=== PATIENT | female | born 1935 | race Caucasian/White ===

== ENCOUNTER 2017-11-29 11:00 | Inpatient (IN) ==
--- NOTE | 2017-11-29 11:39 | Emergency Department Note ---
Disposition Clinical Impression: New onset a-fib Fall Qualifiers: Encounter type: initial encounter Qualified Code(s): W19.XXXA - Unspecified fall, initial encounter Subcapital fracture of left femur Qualifiers: Encounter type: initial encounter Fracture type: closed Qualified Code(s): S72.012A - Unspecified intracapsular fracture of left femur, initial encounter for closed fracture Disposition: Transfer Short-Term Hosp Condition: Fair Referrals: Hanna Shipman FURNACE CHECKER [Primary Care Provider] - Forms: ED Satisfaction Letter Time of Disposition: 14:33 Lower Extremity Injury HPI - General Chief Complaint: ED Extremity Injury, Lower Stated Complaint: fall , L hip pain Time Seen by Provider: 11/29/17 11:06 Source: patient, family, EMS Mode of arrival: EMS Limitations: physical limitation Nursing Notes Reviewed: Yes Vital Signs Reviewed: Yes - History of Present Illness HPI Narrative: Ms. 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 She states she had just eaten breakfast and was walking from the kitchen to the living room. She states she remembers falling but is not sure why, denies tripping or losing footing. Denies dizziness. She states she believes she fell on her left knee and that her left knee and L hip pain were 10+/10 initially ( now 6/10 after morphine during transport). She does not believe she hit her head , but can not recall all details of the fall. EMS called after Jenny activated her lifealert. No history of hypotension, though is treated for HTN with medications. Notes history of one past fall approx 1-2 years ago when she lost her balance and fell into her bathtub. Currently she denies numbness, tingling, confusion, dizziness, headaches. Notes admits a sore area of chest to palpation, stating she may have hit the coffee table. Pt Subjective Complaint: hip injury, knee injury - Related Data Home Medications Medication Instructions Recorded Confirmed Albuterol Sulfate [Albuterol 2 puff IH Q4-6H PRN 07/06/15 07/30/17 Inhaler] Amlodipine Besylate 10 mg PO DAILY 07/06/15 07/30/17 Calcium Carbonate/Vitamin D3 1 each PO DAILY 07/06/15 07/30/17 [Calcium 600 + Vit D3 800 Tab] Cholecalciferol (Vitamin D3) 1,000 unit PO DAILY 07/06/15 07/30/17 [Vitamin D] Fluticasone/Salmeterol [Advair 1 each IH BID 07/06/15 07/30/17 500-50 Diskus] Methotrexate/PF [Otrexup 10 mg/0.4 10 mg SQ QWEEK 07/06/15 07/30/17 ml Auto-Inj] Mirabegron [Myrbetriq] 50 mg PO DAILY 07/06/15 07/30/17 Montelukast [Singulair] 10 mg PO DAILY 07/06/15 07/30/17 Omeprazole [PriLOSEC] 20 mg PO DAILY 07/06/15 07/30/17 Vitamin B Complex 1 each PO DAILY 07/06/15 07/30/17 Allergies Allergy/AdvReac Type Severity Reaction Status Date / Time levofloxacin [From Levaquin] Allergy Hives Verified 07/30/17 11:33 prednisone Allergy Dizziness Verified 07/30/17 11:33 Sulfa (Sulfonamide Allergy Rash Verified 07/30/17 11:33 Antibiotics) All systems ED: reviewed and negative except as stated. Review of Systems: As Per HPI Constitutional: Denies: chills, weakness Cardiovascular: Denies: chest pain, palpitations, orthopnea, edema, syncope Respiratory: Denies: dyspnea Gastrointestinal: Denies: abdominal pain, nausea, vomiting Musculoskeletal: Denies: back pain, neck pain Integumentary: Denies: rash Neurological: Reports: vertigo (notes intermittent dizziness). Denies: headache , weakness, numbness, paresthesias, confusion Endocrine: Denies: fatigue Hematological/Lymphatic: Denies: easy bleeding, easy bruising Past Medical History - Past Medical History Attestation: Yes The following information was validated with the patient. Source: patient, obtained from family Medical history: Reports: cancer, hypertension Psychiatric history: Reports: no psych history - Social History Smoking Status: Never smoker Smokeless Tobacco Status: No Alcohol use: Reports: none Drug use: Reports: none Physical Exam - General Limitations: physical limitation General appearance: alert, in no apparent distress - Head Head exam: atraumatic, normocephalic, normal inspection - Eye Eye exam: Present: normal appearance, EOMI. Absent: conjunctival injection - ENT ENT exam: normal exam, mucous membranes moist - Neck Neck exam: Present: normal inspection, full ROM, trachea midline. Absent: tenderness - Chest Chest inspection: Present: normal inspection, symmetric chest wall rise, tenderness (bruise/ecchymosis to L upper chest, "sore" to touch) - Respiratory Respiratory exam: Present: normal lung sounds bilaterally. Absent: respiratory distress, wheezes, accessory muscle use - Cardiovascular Cardiovascular exam: Present: irregular rhythm - Abdominal Exam Abdominal exam: Present: soft, Non-Tender. Absent: distention, guarding, rebound, rigidity - Expanded Lower Extremity Exam Hip/Pelvis exam: Present: tenderness (pain with movement of hip). Absent: swelling, abrasion, ecchymosis Upper leg exam: Absent: tenderness, swelling, abrasion, laceration, ecchymosis, erythema Knee exam: Present: tenderness, swelling (mild), ecchymosis (inferior aspect). Absent: laceration Lower leg exam: Present: normal inspection. Absent: tenderness, swelling Ankle exam: Present: normal inspection. Absent: tenderness, swelling, abrasion , ecchymosis, erythema Foot/toe exam: Present: normal inspection, full ROM. Absent: tenderness, swelling, abrasion, ecchymosis, erythema Neurovascular/Tendon exam: Present: normal capillary refill. Absent: extremity cold to touch, pallor Gait: unable to bear weight - Neurological Exam Neurological exam: Present: alert, oriented X3 - Psychiatric Psychiatric exam: Present: normal affect, normal mood - Skin Skin exam: Present: warm, dry, intact, normal color (other than noted ). Absent : cyanosis, erythema, pallor, mottled Course - Consultations Consultation #1: Dr. Hunter spoke to Ortho cement mason apprentice physician, Dr. Dobbins. Time: 14:27 Consultation #2: Accepted by Dr. Martinez. Time: 14:34 Vital Signs Temperature 98.6 F 11/29/17 11:02 Pulse Rate 100 11/29/17 11:02 Respiratory Rate 20 11/29/17 11:02 Blood Pressure 148/94 11/29/17 11:02 O2 Sat by Pulse Oximetry 100 11/29/17 11:02 Temperature 98.6 F 11/29/17 11:02 Pulse Rate 113 11/29/17 13:23 Respiratory Rate 18 11/29/17 13:23 Blood Pressure 118/65 11/29/17 13:23 O2 Sat by Pulse Oximetry 100 11/29/17 13:23 Oxygen Delivery Oxygen Delivery Room Air Extremity Injury, Lower - MDM Narrative Medical decision making narrative: Patient found to have new onset Afib, no palpitations or chest pain. CT head pending. Will start patient on heparin if no evidence of a bleed. Left knee XR with osteopenia but no acute injury. Irregularity of L hip XR may represent fracture, will get CT of hip. Patient will likely be admitted for new onset Afib and further workup. 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 No active bleeding. CT hip showing subcapitis fracture of femoral neck. On reassessment patient have significant L leg/hip pain, adjusted pain medication. Patient aware of pending admission. Spoke to both ortho and hospitalist. Will start patient on Heparin for new onset Afib. HR low 100s, BP improved, not started on rate control currently. - Differential Diagnosis Likely: sprain/strain, acute internal derangement of knee, fracture, dislocation - Medical Records Medical records reviewed: Yes I reviewed the patient's medical records. - Lab Data Lab results reviewed: Yes I reviewed the patient's lab results. Result diagrams: 11/29/17 13:24 11/29/17 13:24 Lab Results 11/29/17 11/29/17 11/29/17 Range/Units 13:24 13:24 13:24 WBC 11.4 H (4.3-11.1) K/mcL RBC 4.24 (3.82-4.97) M/mcL Hgb 13.6 (11.5-15.4) g/dL Hct 39.9 (35.3-44.9) % MCV 94.1 (83.0-100.0) fL MCH 32.1 (28.0-33.3) pg MCHC 34.1 (31.6-35.5) g/dL RDW 14.1 (11.5-14.5) % Plt Count 151 (140-400) K/mcL MPV 9.7 (9.4-12.4) fL Immature Gran % 1.1 (0-4) % Seg Neutrophils % 84.5 % Lymphocytes % 7.8 % Monocytes % 5.4 % Eosinophils % 0.9 % Basophils % 0.3 % Neutrophils # 9.6 H (1.6-8.9) K/mcL Lymphocytes # 0.9 (0.6-4.6) K/mcL Monocytes # 0.6 (0.0-1.3) K/mcL Eosinophils # 0.1 (0.0-0.6) K/mcL Basophils # 0.0 (0.0-0.2) K/mcL Sodium 138 (136-145) mEq/L Potassium 3.7 (3.5-5.1) mEq/L Chloride 106 (98-107) mEq/L Carbon Dioxide 23 (23-29) mEq/L BUN 11 (8-23) mg/dL Creatinine 0.56 L (0.60-1.20) mg/dL Est GFR ( Amer) > 60 (> 60) Est GFR (Non-Af Amer) > 60 (> 60) BUN/Creatinine Ratio 20 (6-26) Glucose 127 H (70-105) mg/dL Calculated Osmolality 287 (280-300) Calcium 9.0 (8.6-10.3) mg/dL Troponin I < 0.03 (< 0.04) ng/mL Specimen Rejected Blood Type Antibody Screen 11/29/17 11/29/17 Range/Units 13:24 14:09 WBC (4.3-11.1) K/mcL RBC (3.82-4.97) M/mcL Hgb (11.5-15.4) g/dL Hct (35.3-44.9) % MCV (83.0-100.0) fL MCH (28.0-33.3) pg MCHC (31.6-35.5) g/dL RDW (11.5-14.5) % Plt Count (140-400) K/mcL MPV (9.4-12.4) fL Immature Gran % (0-4) % Seg Neutrophils % % Lymphocytes % % Monocytes % % Eosinophils % % Basophils % % Neutrophils # (1.6-8.9) K/mcL Lymphocytes # (0.6-4.6) K/mcL Monocytes # (0.0-1.3) K/mcL Eosinophils # (0.0-0.6) K/mcL Basophils # (0.0-0.2) K/mcL Sodium (136-145) mEq/L Potassium (3.5-5.1) mEq/L Chloride (98-107) mEq/L Carbon Dioxide (23-29) mEq/L BUN (8-23) mg/dL Creatinine (0.60-1.20) mg/dL Est GFR ( Amer) (> 60) Est GFR (Non-Af Amer) (> 60) BUN/Creatinine Ratio (6-26) Glucose (70-105) mg/dL Calculated Osmolality (280-300) Calcium (8.6-10.3) mg/dL Troponin I (< 0.04) ng/mL Specimen Rejected Volume Blood Type O NEGATIVE Antibody Screen NEGATIVE - Radiology Data Radiology results reviewed: Yes I reviewed the patient's radiology results. - EKG Data EKG attestation: Yes I reviewed and interpreted this EKG. Rate: tachycardia (HR 109) Rhythm: A.Fib When compared to previous EKG there are: changes noted (new onset Afib) Attestation Statement - Attestation Attestation: I, Jaime Hunter, examined this patient and my medical decision-making was reviewed with the GRAIN INSPECTOR/PA/Advanced Practice Nurse/Resident Physician. I agree with the documented findings, disposition and treatment plan as described except to the extent set forth below. 82-year-old female presents emergency Department after a fall at home. Patient is unsure why she fell to the ground. She denies syncopal event or lightheadedness or chest pain or shortness of breath prior to the fall. She fell to the ground, striking her head on the ground. There is no external evidence of trauma to the head. Patient denied recent fever, chills, nausea, vomiting, diarrhea. No recent changes to her medications. Patient has severe pain to the left hip and the left knee. On physical exam she has pain with log rolling of the left hip and pain to palpation of the left knee. Pulses are equal in bilateral lower extremity. There is no obvious shortening of the left lower extremity. No neck pain to palpation of midline cervical spine. CT of the head showed possible internal carotid aneurysm however this is been present on previous imaging studies and there is no evidence of acute intracranial hemorrhage. Patient has new onset atrial fibrillation in the emergency department on her EKG. Does not take anticoagulation medication. X-ray showed possible fracture of the left hip. We will obtain CT of the left hip for further evaluation of possible fracture. Is unclear how long the patient has been in atrial fibrillation. Laboratory evaluation is still pending at this time. Patient will be admitted to the hospital for further care and evaluation.
[2017-11-29] MEDS ORDERED: *HR* FentaNYL (PF) 100 MCG/2 ML VIAL EP ONE ×2 (13:26→14:20)
[2017-11-29 13:42] LABS: Basophils % 0.3 %; Eosinophils # 0.1 K/mcL (0.0-0.6); Eosinophils % 0.9 %; Hematocrit 39.9 % (35.3-44.9); Hemoglobin 13.6 g/dL (11.5-15.4); Immature Granulocytes % 1.1 % (0-4); Lymphocytes # 0.9 K/mcL (0.6-4.6); Lymphocytes % 7.8 %; Mean Corpuscular HGB Conc 34.1 g/dL (31.6-35.5); Mean Corpuscular Hemoglobin 32.1 pg (28.0-33.3); Mean Corpuscular Volume 94.1 fL (83.0-100.0); Mean Platelet Volume 9.7 fL (9.4-12.4); Monocytes # 0.6 K/mcL (0.0-1.3); Monocytes % 5.4 %; Neutrophils # 9.6 K/mcL (1.6-8.9); Platelet Count 151 K/mcL (140-400); Red Blood Count 4.24 M/mcL (3.82-4.97); Red Cell Distribution Width 14.1 % (11.5-14.5); Segmented Neutrophils % 84.5 %
[2017-11-29 13:56] LABS: BUN/Creatinine Ratio 20 (6-26); Blood Urea Nitrogen 11 mg/dL (8-23); Carbon Dioxide 23 mEq/L (23-29); Chloride 106 mEq/L (98-107); Glucose 127 mg/dL (70-105); Osmolality,Calculated 287 (280-300); Potassium 3.7 mEq/L (3.5-5.1); Sodium 138 mEq/L (136-145); eGFR For Non-African Americans > 60 (> 60)
[2017-11-29] MEDS ORDERED: Heparin 25,000 UNIT/500 ML D5W 25,000 UNIT/500 ML BAG IVC SCH (14:30)
[2017-11-29] MEDS ORDERED: *HR* Heparin 5,000 UNIT/ML VIAL IVP ONE (14:30)
[2017-11-29] MEDS ORDERED: *HR* Heparin 5,000 UNIT/ML VIAL IVP PRN ×2 (14:30)
[2017-11-29] MEDS ORDERED: Naloxone 0.4 MG/ML INJ IVP PRN (14:43)
[2017-11-29] MEDS ORDERED: Isovue-370 500 ML INFUS..BTL IV ONE (15:01)
[2017-11-29 15:13] LABS: Prothrombin Time 11.7 Seconds (9.4-12.1)
[2017-11-29 15:16] LABS: Activated Partial Thrombo Time 32.2 Seconds (26.0-36.0)
[2017-11-29] MEDS ORDERED: OXYCODONE Oral CONC 10 MG/0.5 ML ORAL.SYG SL PRN (15:30)
--- NOTE | 2017-11-29 15:47 | Internal Med History&Physical ---
Date of Encounter: 11/29/17 Time of Encounter: 15:00 Internal Medicine - H&P: HPI Chief complaint: S/p fall today with left hip fracture History of present illness: Ms. Rodríguez is a 82 year old female with pmh of hypertension who came in with complaints of fall this am after breakfast. Patient notes she was walking to from the kitchen to the living room when she fell and she says she may have tripped on the carpet. She denies any dizziness or any loss of consciousness. She thinks she fell on her left knee and left hip and was in pain afterwards. Does not recall hitting her head. 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 She was also found to be in atrial fibrilation without RVR which she denies a history of. Past Med Surg Social Fam HX - Past Medical History Medical history: cancer, hypertension Additional medical history: breast CA hx Psychiatric history: no psych history - Past Surgical History Additional surgical history: mastectomy (R) - Social History Smoking Status: Never smoker Smokeless Tobacco Status: No Alcohol use: none Drug use: none Internal Medicine - H&P: Meds Albuterol Sulfate [Albuterol Inhaler] 2 puff IH Q4-6H PRN 07/06/15 [History] Amlodipine Besylate 10 mg PO HS 07/06/15 [History] Cholecalciferol (Vitamin D3) [Vitamin D] 1,000 unit PO DAILY 07/06/15 [History] Fluticasone/Salmeterol [Advair 500-50 Diskus] 1 each IH BID 07/06/15 [History] Mirabegron [Myrbetriq] 50 mg PO HS 07/06/15 [History] Montelukast [Singulair] 10 mg PO HS 07/06/15 [History] Omeprazole [PriLOSEC] 20 mg PO DAILY 07/06/15 [History] Vitamin B Complex 1 cap PO DAILY 07/06/15 [History] Calcium Carbonate/Vitamin D3 [Calcium 500 + Vit D Caplet] 1 tab PO DAILY [History] Folic Acid 1 mg PO DAILY 11/29/17 [History] Methotrexate/PF [Rasuvo 20 mg/0.4 ml Autoinj] 10 mg SQ SA 11/29/17 [History] Turmeric Root Extract [Turmeric] 500 mg PO DAILY 11/29/17 [History] 3 Allergy/AdvReac Type Severity Reaction Status Date / Time levofloxacin [From Levaquin] Allergy Hives Verified 11/29/17 15:06 Sulfa (Sulfonamide Allergy Rash Verified 11/29/17 15:06 Antibiotics) prednisone AdvReac Dizziness Verified 11/29/17 15:06 All Systems PM: A 10-system review of systems was performed and is negative for pertinent findings except as documented above in the HPI. - Constitutional Constitutional: falls, no chills, no fever(s), no night sweats - EENT Eyes: no change in vision, no discharge, no pain, no photophobia Ears: no ear discharge, no ear pain, no tinnitus Nose, mouth and throat: no dysphagia, no nasal discharge, no neck pain, no sore throat - Cardiovascular Cardiovascular ROS IM: no chest pain, no diaphoresis, no dyspnea, no lightheadedness, no palpitations, no syncope - Respiratory Respiratory: no cough, no dyspnea, no wheezing, no excessive phlegm production - Gastrointestinal Gastrointestinal: no abdominal pain, no diarrhea, no hematemesis, no hematochezia, no melena, no nausea, no vomiting - Genitourinary Genitourinary: no change in urinary stream, no dysuria, no flank pain, no hematuria - Musculoskeletal Musculoskeletal ROS IM: as per HPI, no numbness, no tingling Additional comments: hip pain - Integumentary Integumentary IM: no rash, no unusual bruising - Neurological Neurological ROS: no confusion, no convulsions, no focal weakness, no numbness, no tingling, no tremor(s) - Hematologic/Lymphatic Hematologic/Lymphatic: no easy bruising - Constitutional Vitals: Temp Pulse Resp BP Pulse Ox 98.6 F 120 16 131/87 99 11/29/17 11:02 11/29/17 14:38 11/29/17 14:38 11/29/17 14:38 11/29/17 14:38 Exam: complains of pain - Head Head exam: Present: atraumatic, normocephalic - Eye Eye exam: Present: PERRL, conjuntiva pink, sclera anicteric Pupils: Present: PERRL - Neck Neck exam general surgery: Present: supple, trachea midline. Absent: lymphadenopathy - Respiratory Respiratory exam: Present: CTAB. Absent: accessory muscle use, rales, rhonchi, wheezes - Cardiovascular Cardiovascular exam: Present: irregular rhythm, +S1, +S2. Absent: diastolic murmur, gallop, rubs, systolic murmur - GI/Abdominal GI/Abdominal exam: Present: normal bowel sounds, soft, no peritoneal signs. Absent: distended, tenderness - Extremities Exam Extremities exam: Present: warm, radial pulses palpable and symmetrical. Absent : calf tenderness, cyanotic, pedal edema Additional comments: hip pain - Neurological Exam Neurological exam: Present: CN II-XII intact, oriented X3, no focal deficits. Absent: pronater drift, facial droop, speech deficit - Skin Skin exam: Present: dry, intact Internal Med - H&P Results - Labs CBC & Chem 7: 11/29/17 13:24 11/29/17 13:24 - Assessment and plan (1) Subcapital fracture of left femur Current Visit: Yes Status: Acute Assessment and plan: Pt had a fall today after likely tripping on her carpet. CT hip showed acute impacted subcapital left femoral neck fracture. Orthopedic surgery consulted. Pain control PRN. NPO from midnight Qualifiers: Encounter type: initial encounter Fracture type: closed Qualified Code(s) : S72.012A - Unspecified intracapsular fracture of left femur, initial encounter for closed fracture (2) New onset a-fib Current Visit: Yes Status: Acute Assessment and plan: No previous history of afib. Does complain of intermittent dizziness for a number of months. EKG in ER showed afib with hR of 100. Will start on beta blockers BID. Monitor HR, patient has a [id number] score of 4 based on age, female gender and hypertension, but has a history of aneurysm greater than 7mm in diameter and fall risk. Discussed with neuro, patient has high risk of bleeding and will not initiate therapeutic anticoagulation at this time. Will start on aspirin and obtain 2D echo to evaluate cardiac function. (3) Breast cancer Current Visit: No Status: Acute Assessment and plan: Stable Qualifiers: Qualified Code(s): C50.919 - Malignant neoplasm of unspecified site of unspecified female breast (4) Rheumatoid arthritis Current Visit: No Status: Acute Assessment and plan: Follow u with outpatient rhuematologist Qualifiers: Qualified Code(s): M06.9 - Rheumatoid arthritis, unspecified (5) DVT prophylaxis Current Visit: Yes Status: Acute Assessment and plan: Subcutaneous heparin - Time Spent With Patient Total time spent is greater than 50% in coordination of care (as documented) at patient's floor/unit and/or counseling patient:
[2017-11-29] MEDS: Aspirin 81 MG TAB.CHEW PO SCH (16:24)
[2017-11-29] MEDS: *HR* OxyCODONE/APAP 5/325 TABLET PO PRN ×2 (16:33→20:46)
[2017-11-29 16:35] LABS: Thyroid Stimulating Hormone 11.952 mcIU/mL (0.340-5.600)
[2017-11-29] MEDS: *HR* Heparin 5,000 UNIT/ML VIAL SQ SCH (18:25)
[2017-11-29] MEDS: ADVAIR AER SCH (20:21)
[2017-11-29 20:24] LABS: Bilirubin,Urine Negative (Negative); Blood,Urine Trace (Negative); Clarity,Urine Cloudy (Clear); Color,Urine Yellow (Yellow); Glucose,Urine (UA) Normal (Normal); Ketones,Urine Trace mg/dL (Negative); Leukocyte Esterase,Urine Negative (Negative); Nitrite,Urine Negative (Negative); PH,Urine 6.5 pH Units (5.0-8.0); Protein,Urine Negative (Neg-Trace); Specific Gravity,Urine 1.016 (1.010-1.025); Urobilinogen,Urine Normal (Normal)
[2017-11-29 20:26] LABS: Bacteria,Urine None Seen per hpf (None-Few); Hyaline Casts,Urine None Seen per lpf (None-Few); Squamous Epithelial Cell,Urine Many per lpf (None-Few); WBC,Urine 0-3 per hpf (0-3)
[2017-11-29 20:44] LABS: Amorphous Sediment,Urine Few (Few); RBC,Urine 0-3 per hpf (0-3)
[2017-11-29] MEDS ORDERED: Budesonide/Formoterol 160/4.5 1 PUFF INH IH SCH (22:00)
[2017-11-30 01:29] LABS: Basophils % 0.3 %; Eosinophils % 0.4 %; Hematocrit 38.8 % (35.3-44.9); Hemoglobin 13.4 g/dL (11.5-15.4); Immature Granulocytes % 0.4 % (0-4); Lymphocytes # 0.8 K/mcL (0.6-4.6); Lymphocytes % 11.3 %; Mean Corpuscular HGB Conc 34.5 g/dL (31.6-35.5); Mean Corpuscular Hemoglobin 31.2 pg (28.0-33.3); Mean Corpuscular Volume 90.4 fL (83.0-100.0); Mean Platelet Volume 9.6 fL (9.4-12.4); Monocytes # 0.6 K/mcL (0.0-1.3); Monocytes % 7.7 %; Neutrophils # 5.7 K/mcL (1.6-8.9); Platelet Count 156 K/mcL (140-400); Red Blood Count 4.29 M/mcL (3.82-4.97); Red Cell Distribution Width 14.1 % (11.5-14.5); Segmented Neutrophils % 79.9 %
[2017-11-30 01:52] LABS: BUN/Creatinine Ratio 22 (6-26); Blood Urea Nitrogen 10 mg/dL (8-23); Calcium 9.3 mg/dL (8.6-10.3); Carbon Dioxide 26 mEq/L (23-29); Chloride 101 mEq/L (98-107); Glucose 139 mg/dL (70-105); Magnesium 1.7 mg/dL (1.6-2.6); Osmolality,Calculated 281 (280-300); Phosphorous 2.8 mg/dL (2.7-4.5); Potassium 3.5 mEq/L (3.5-5.1); Sodium 135 mEq/L (136-145); eGFR For Non-African Americans > 60 (> 60)
[2017-11-30] MEDS: *HR* Heparin 5,000 UNIT/ML VIAL SQ SCH ×2 (04:45→17:47)
[2017-11-30] MEDS ORDERED: amLODIPine 5 MG TABLET PO SCH (09:00)
[2017-11-30] MEDS ORDERED: (Mirabegron [Myrbetriq] 50 MG) PO SCH (09:00)
[2017-11-30] MEDS ORDERED: Cholecalciferol (D-3) 1,000 UNIT TABLET PO SCH (09:00)
[2017-11-30] MEDS: Aspirin 81 MG TAB.CHEW PO SCH (09:50)
--- NOTE | 2017-11-30 10:04 | Internal Med Progress Note ---
Hospitalist Progress Note - Encounter Date of Encounter: 11/30/17 Time of Encounter: 10:00 - Subjective Interval History: No acute events overnight - Exam Vitals: Temp Pulse Resp BP Pulse Ox 98.9 F 69 16 158/85 94 11/30/17 07:11 11/30/17 07:11 11/30/17 07:11 11/30/17 07:11 11/30/17 07:11 Exam: complains of pain Gen - Awake, alert, oriented x 3, no acute distress HEENT - NCAT, PERRLA, EOMI, hearing grossly intact, oropharynx benign CV - RRR, normal S1 and S2, no M/R/G, no BLE edema Resp - Normal WOB, CTAB, no W/R/R GI - Soft, NT/ND, no masses, normal bowel sounds, Skin - Warm, dry, no rashes/lesions/ulcers Psych - Normal mood and affect, no depression or anxiety - Assessment and Plan (1) Subcapital fracture of left femur Current Visit: Yes Status: Acute Assessment and Plan: Pt had a fall today after likely tripping on her carpet. CT hip showed acute impacted subcapital left femoral neck fracture. Orthopedic surgery consulted. Pain control PRN. NPO from midnight (2) New onset a-fib Current Visit: Yes Status: Acute Assessment and Plan: No previous history of afib. Does complain of intermittent dizziness for a number of months. EKG in ER showed afib with hR of 100. Will start on beta blockers BID. Monitor HR, patient has a [id number] score of 4 based on age, female gender and hypertension, but has an internal carotid artery aneurysm greater than 7mm in diameter and fall risk. Discussed with neuro, patient has high risk of bleeding and will not initiate therapeutic anticoagulation at this time. Will start on aspirin and obtain 2D echo to evaluate cardiac function. (3) Breast cancer Current Visit: No Status: Acute Assessment and Plan: Stable (4) Rheumatoid arthritis Current Visit: No Status: Acute Assessment and Plan: Follow up with outpatient rhuematologist (5) DVT prophylaxis Current Visit: Yes Status: Acute Assessment and Plan: Subcutaneous heparin - Time Spent with Patient Total time spent is greater than 50% in coordination of care (as documented) at patient's floor/unit and/or counseling patient: Internal Medicine: Result - Labs CBC & Chem 7: 11/30/17 00:54 11/30/17 00:54 Labs: Short CBC 11/30/17 Range/Units 00:54 WBC 7.1 (4.3-11.1) K/mcL Hgb 13.4 (11.5-15.4) g/dL Hct 38.8 (35.3-44.9) % Plt Count 156 (140-400) K/mcL Neutrophils # 5.7 (1.6-8.9) K/mcL BMP 11/30/17 00:54 Sodium 135 L Potassium 3.5 Chloride 101 Carbon Dioxide 26 BUN 10 Creatinine 0.46 L Glucose 139 H Calcium 9.3 Urine 11/29/17 Range/Units 20:02 Urine Color Yellow (Yellow) Urine Clarity Cloudy A (Clear) Urine pH 6.5 (5.0-8.0) pH Units Ur Specific [place] 1.016 (1.010-1.025) Urine Protein Negative (Neg-Trace) mg/dL Urine Glucose (UA) Normal (Normal) mg/dL - ABG Interpretation ABG results: PT/INR, D-dimer PT 11.7 Seconds (9.4-12.1) 11/29/17 14:54 - VTE Documentation of Mechanical Device: Venous foot pump, device Consult Discharge Plan - Plan Referrals: Hanna Shipman RESTAURANT SHIFT SUPERVISOR [Primary Care Provider] - (1) Subcapital fracture of left femur Qualifiers: Encounter type: initial encounter Fracture type: closed Qualified Code(s): S72.012A - Unspecified intracapsular fracture of left femur, initial encounter for closed fracture
--- NOTE | 2017-11-30 13:15 | Orthopedic Consult Note ---
Date of Encounter: 11/30/17 Time of Encounter: 13:14 Assessment and Plan (1) Subcapital fracture of left femur Current Visit: Yes Status: Acute The diagnosis and treatment recommendations were discussed with the patient. She has a valgus impacted subcapital fracture of the left hip and to allow her opportunity for early mobility, and for pain control and to decrease the risks associated with immobility, surgical treatment was recommended. After discussing the pros and cons of treatment options including non-operative and operative intervention, the patient has consented for left hip percutaneous pinning to be performed. The risks and benefits of the procedure were fully explained in detail, including but not limited to the risk of infection, neurovascular injury, continued pain or stiffness, failure of surgery, reinjury , or need for additional surgery, DVT, PE, general risks of anesthesia and loss of limb or life. No guarantees were given or implied and all questions were answered. The patient understands all the risks and does wish to proceed with written consent. Appreciate medical management from primary team. Plan for surgery in AM when medically cleared, NPO at midnight. Qualifiers: Encounter type: initial encounter Fracture type: closed Qualified Code(s) : S72.012A - Unspecified intracapsular fracture of left femur, initial encounter for closed fracture History of Present Illness HPI: Ms. Rodríguez is a 82 year old female with PMHx breast cancer, hypertension, new onset atrial fibrillation who was admitted after a mechanical fall onto her left hip. She tripped at home on the carpet and was brought to the ED and found to have a valgus impacted subcapital fracture of the left hip. She was then admitted for definitive management. She was found to have new onset atrial fibrillation in the ED and is being managed for this by the hospitalist. She denies any chest pain or SOB. No prodromal symptoms prior to the fall. She does not typically use a walker but says that she does have one and has been told that she should be using it. She complains of mild discomfort in the left hip area but otherwise has no other complaints. Past Med Surg Social Fam HX - Past Medical History Medical history: cancer, hypertension Additional medical history: breast CA hx Psychiatric history: no psych history - Past Surgical History Surgical History: appendectomy, cholecystectomy, other Additional surgical history: mastectomy (R) - Social History Smoking Status: Never smoker Smokeless Tobacco Status: No Alcohol use: none Drug use: none - Family History Daughter Hx Family Cardiac Disorders: Yes Medications and Allergies Albuterol Sulfate [Albuterol Inhaler] 2 puff IH Q4-6H PRN 07/06/15 [History] Amlodipine Besylate 10 mg PO HS 07/06/15 [History] Cholecalciferol (Vitamin D3) [Vitamin D] 1,000 unit PO DAILY 07/06/15 [History] Fluticasone/Salmeterol [Advair 500-50 Diskus] 1 each IH BID 07/06/15 [History] Mirabegron [Myrbetriq] 50 mg PO HS 07/06/15 [History] Montelukast [Singulair] 10 mg PO HS 07/06/15 [History] Omeprazole [PriLOSEC] 20 mg PO DAILY 07/06/15 [History] Vitamin B Complex 1 cap PO DAILY 07/06/15 [History] Calcium Carbonate/Vitamin D3 [Calcium 500 + Vit D Caplet] 1 tab PO DAILY [History] Folic Acid 1 mg PO DAILY 11/29/17 [History] Methotrexate/PF [Rasuvo 20 mg/0.4 ml Autoinj] 10 mg SQ SA 11/29/17 [History] Turmeric Root Extract [Turmeric] 500 mg PO DAILY 11/29/17 [History] 3 Allergy/AdvReac Type Severity Reaction Status Date / Time levofloxacin [From Levaquin] Allergy Hives Verified 11/29/17 15:06 Sulfa (Sulfonamide Allergy Rash Verified 11/29/17 15:06 Antibiotics) prednisone AdvReac Dizziness Verified 11/29/17 15:06 All Systems Reviewed: The remainder of the systems were reviewed and are negative except as noted in the HPI Physical Exam - Constitutional Vitals: Temp Pulse Resp BP Pulse Ox 98.3 F 59 16 143/83 94 11/30/17 11:30 11/30/17 11:30 11/30/17 11:30 11/30/17 11:30 11/30/17 11:30 Exam: Consult Exam: Constitutional -Vitals reviewed -The patient is well developed and well nourished. Psychiatric -The patient is alert and oriented x 3. Respiratory: -Respiratory effort normal Abdomen: -Soft abdomen -Non tender -Non distended: Left upper extremity: -No deformities. The overlying skin is intact. No obvious signs of acute trauma. -No tenderness to palpation throughout. -No significant pain with passive motion of the shoulder, elbow, wrist, and fingers within the limits of the bed. -Spontaneously moves extremity without pain -Sensation grossly intact to light touch throughout the median, radial, and ulnar distributions. -Radial pulse is present; Fingers have good capillary refill. Right upper extremity: -No deformities. The overlying skin is intact. No obvious signs of acute trauma. -No tenderness to palpation throughout. -No significant pain with passive motion of the shoulder, elbow, wrist, and fingers within the limits of the bed. -Spontaneously moves extremity without pain -Sensation grossly intact to light touch throughout the median, radial, and ulnar distributions. -Radial pulse is present; Fingers have good capillary refill. Left lower extremity: -TTP medial knee joint line. No tenderness over ankle, and toes -Pain with log roll/IR at hip -Able to dorsiflex and plantarflex the ankle and toes. -Sensation is grossly intact to light touch throughout the sural, saphenous, superficial peroneal, and deep peroneal distributions. -Toes have good capillary refill. Right lower extremity: -No deformities. The overlying skin is intact. No obvious signs of acute trauma. -No tenderness to palpation throughout. -No pain with passive motion of the hip, knee, ankle, and toes within the limits of the bed. -No pain with axial loading of the thigh. -Able to dorsiflex and plantarflex the ankle and toes. -Sensation is grossly intact to light touch throughout the sural, saphenous, superficial peroneal, and deep peroneal distributions. -Toes have good capillary refill. Results - Labs Result Diagrams: 11/30/17 00:54 11/30/17 00:54 Labs: Abnormal lab results Sodium 135 mEq/L (136-145) L 11/30/17 00:54 Creatinine 0.46 mg/dL (0.60-1.20) L 11/30/17 00:54 Glucose 139 mg/dL (70-105) H 11/30/17 00:54 TSH 11.952 mcIU/mL (0.340-5.600) H 11/29/17 13:24 Urine Clarity Cloudy (Clear) A 11/29/17 20:02 Urine Ketones Trace mg/dL (Negative) H 11/29/17 20:02 Urine Blood Trace (Negative) H 11/29/17 20:02 Ur Squamous Epith Cells Many per lpf (None-Few) H 11/29/17 20:02 H & H 11/30/17 Range/Units 00:54 Hgb 13.4 (11.5-15.4) g/dL Hct 38.8 (35.3-44.9) % All other labs normal. - Diagnostic results Hip x-ray: report reviewed, image reviewed (Valgus impacted L subcapital femoral neck fracture) Knee x-ray: report reviewed, image reviewed (Osteopenia, degenerative changes. No obvious fracture or dislocation) Consult Discharge Plan - Plan Referrals: Hanna Shipman NAIL ASSEMBLY MACHINE OPERATOR [Primary Care Provider] -
[2017-11-30] MEDS ORDERED: Ibuprofen 600 MG TABLET PO PRN (17:11)
[2017-12-01] MEDS: *HR* Heparin 5,000 UNIT/ML VIAL SQ SCH ×2 (06:16→16:54)
--- NOTE | 2017-12-01 07:26 | Anesthesia Evaluation PreOp ---
Date of Encounter: 12/01/17 Time of Encounter: 07:24 - Past History Planned Operation: L hip pinning Cardiac History: HTN, Hyperlipidemia, Arrhythmia (afib) Pulmonary History: Denies Any Significant HX SOFTWARE VALIDATION ENGINEER History: Denies Any Significant HX Other Medical History: Other (breast ca) Anesthesia History: No Prior Anesthetic Complications, Past Anesthesia (R mastectomy) Alcohol Use: none Drug use: none Medications and Allergies Albuterol Sulfate [Albuterol Inhaler] 2 puff IH Q4-6H PRN 07/06/15 [History] Amlodipine Besylate 10 mg PO HS 07/06/15 [History] Cholecalciferol (Vitamin D3) [Vitamin D] 1,000 unit PO DAILY 07/06/15 [History] Fluticasone/Salmeterol [Advair 500-50 Diskus] 1 each IH BID 07/06/15 [History] Mirabegron [Myrbetriq] 50 mg PO HS 07/06/15 [History] Montelukast [Singulair] 10 mg PO HS 07/06/15 [History] Omeprazole [PriLOSEC] 20 mg PO DAILY 07/06/15 [History] Vitamin B Complex 1 cap PO DAILY 07/06/15 [History] Calcium Carbonate/Vitamin D3 [Calcium 500 + Vit D Caplet] 1 tab PO DAILY [History] Folic Acid 1 mg PO DAILY 11/29/17 [History] Methotrexate/PF [Rasuvo 20 mg/0.4 ml Autoinj] 10 mg SQ SA 11/29/17 [History] Turmeric Root Extract [Turmeric] 500 mg PO DAILY 11/29/17 [History] 3 Allergy/AdvReac Type Severity Reaction Status Date / Time levofloxacin [From Levaquin] Allergy Hives Verified 11/29/17 15:06 Sulfa (Sulfonamide Allergy Rash Verified 11/29/17 15:06 Antibiotics) prednisone AdvReac Dizziness Verified 11/29/17 15:06 - Meds/Allergy Pre-op Review Medications Reviewed: Yes Allergies Reviewed: Yes Beta Blockers on Current Med List: Yes If Beta Blockers taken, Date/Time (Last Dose taken): 11/30 Anesthesia Results - Labs 11/30/17 00:54 11/30/17 00:54 - Imaging Additional studies: 11/29/17 Impressions: LVEF 55%. Normal LV chamber size, wall thickness and function. Mild left ventricular diastolic dysfunction. Normal right ventricular structure and function. Mild aortic regurgitation. Mild mitral regurgitation. Moderate tricuspid regurgitation. Moderate pulmonary hypertension. Anesthesia Exam Vital Signs/O2 Sat, Most Current Temp Pulse Resp BP Pulse Ox 99.6 F 82 17 122/80 96 12/01/17 06:40 12/01/17 06:40 12/01/17 06:40 12/01/17 06:40 12/01/17 06:40 Weight: 63kg NPO (# of Hours): >8 - HEENT Pupil (Motor): Pupils equal, EOMI - SOFTWARE VALIDATION ENGINEER LOC: Oriented SOFTWARE VALIDATION ENGINEER Motor: Normal RUE, Normal LUE, Normal RLE, Normal Face, Deficit LLE (hip fx) SOFTWARE VALIDATION ENGINEER Sensory: Normal: RUE, LUE, RLE, LLE, Face - Cardiac Rhythm: Regular - Pulmonary Breath Sounds: bilateral Clear Anesthesia Assess/Plan ASA Score: 3 (HTN, afib) Modified Gissell Scale for Level of Consciousness: Cooperative, oriented, and tranquil Anesthetic Plan: General Monitoring Plan: Standard Monitors Recovery Plan: PACU
[2017-12-01] MEDS ORDERED: Lidocaine -MPF 2% 2 ML VIAL ONE (07:30)
[2017-12-01] MEDS ORDERED: *HR* Succinylcholine 200 MG/10 ML VIAL IVP ONE (07:30)
[2017-12-01] MEDS ORDERED: *HR* Rocuronium Bromide 50 MG/5 ML VIAL ONE (07:30)
[2017-12-01] MEDS ORDERED: Lidocaine -MPF 4% 5 ML AMPUL ONE (07:30)
[2017-12-01] MEDS ORDERED: *HR* FentaNYL (PF) 100 MCG/2 ML VIAL ONE (07:30)
[2017-12-01] MEDS ORDERED: *HR* Propofol 200 MG/20 ML VIAL IVP ONE (07:31)
[2017-12-01] MEDS ORDERED: Ondansetron 4 MG/2 ML VIAL IVP ONE ×2 (07:38→11:06)
[2017-12-01] MEDS ORDERED: Naloxone 0.4 MG/ML INJ IVP PRN ×3 (07:38→11:06)
[2017-12-01] MEDS ORDERED: *HR* FentaNYL (PF) 100 MCG/2 ML VIAL IVP PRN ×2 (07:38→11:06)
[2017-12-01] MEDS ORDERED: *HR* OxyCODONE Immed Rel 5 MG TABLET PO PRN (07:38)
[2017-12-01] MEDS ORDERED: Ringers Solution, Lactated 1,000 ML IVC SCH (07:45)
[2017-12-01] MEDS ORDERED: ceFAZolin 2,000 MG in Water for inj. (sterile) 20 ML 10 ML IVP ONE (08:28)
[2017-12-01] MEDS ORDERED: EPHEDrine 50 MG/ML VIAL ONE (08:35)
[2017-12-01] MEDS ORDERED: *HR* PHENYLEPHRINE 1,000 MCG/10 ML SYRINGE IVP ONE (08:38)
[2017-12-01] MEDS ORDERED: Acetaminophen IV 1,000 MG/100 ML INFUS..BTL ONE (09:27)
--- NOTE | 2017-12-01 09:55 | Anesthesia Evaluation Post Op ---
Date of Encounter: 12/01/17 Time of Encounter: 09:54 - Vital Signs Vital Signs: Vital Signs/O2 Sat, Most Current Temp Pulse Resp BP Pulse Ox 98.9 F 75 16 135/67 100 12/01/17 09:26 12/01/17 09:36 12/01/17 09:36 12/01/17 09:36 12/01/17 09:36 - Lungs Lungs: Clear Ascult./Percussion - Airway Airway: Non-obstructed - Cardiovascular Regular Rate - Mental Status Mental Status: Alert & Oriented, Answers Appropriately, Baseline Status - Pain Pain Scale used: Numeric (1 - 10) (tolerable) - Nausea Vomiting Nausea Vomiting: Not Present - Hydration Hydration: Ice chips, Garcia catheter - Discharge PostOp Status: Transfer Patient to floor Attestation: I have assessed this patient and find they meet discharge criteria.
--- NOTE | 2017-12-01 10:12 | Physician Discharge Referral ---
- Diagnosis (1) Subcapital fracture of left femur Status: Acute - Transfer Medications Home Medications: Albuterol Sulfate [Albuterol Inhaler] 2 puff IH Q4-6H PRN 07/06/15 [History] Amlodipine Besylate 10 mg PO HS 07/06/15 [History] Cholecalciferol (Vitamin D3) [Vitamin D] 1,000 unit PO DAILY 07/06/15 [History] Fluticasone/Salmeterol [Advair 500-50 Diskus] 1 each IH BID 07/06/15 [History] Mirabegron [Myrbetriq] 50 mg PO HS 07/06/15 [History] Montelukast [Singulair] 10 mg PO HS 07/06/15 [History] Omeprazole [PriLOSEC] 20 mg PO DAILY 07/06/15 [History] Vitamin B Complex 1 cap PO DAILY 07/06/15 [History] Calcium Carbonate/Vitamin D3 [Calcium 500 + Vit D Caplet] 1 tab PO DAILY [History] Folic Acid 1 mg PO DAILY 11/29/17 [History] Methotrexate/PF [Rasuvo 20 mg/0.4 ml Autoinj] 10 mg SQ SA 11/29/17 [History] Turmeric Root Extract [Turmeric] 500 mg PO DAILY 11/29/17 [History] Allergies/Adverse Reactions: 3 Allergy/AdvReac Type Severity Reaction Status Date / Time levofloxacin [From Levaquin] Allergy Hives Verified 11/29/17 15:06 Sulfa (Sulfonamide Allergy Rash Verified 11/29/17 15:06 Antibiotics) prednisone AdvReac Dizziness Verified 11/29/17 15:06 - Respiratory Orders Smoking Cessation: Smoking cessation has been advised. For more information, call the [place] Tobacco Quit Line at 3-861-QMKM-NOW. - Mobility Orders Ambulate - Rehabiliation Orders Rehab Potential: Fair Rehab Orders: Evaluation for Physical Therapy, Evaluation for Occupational Therapy Other: GROUP HOME DISCHARGE INSTRUCTIONS Dr. Shilpi CHA PERFORMED Reduction and fixation of left hip. Incision care -Keep clear dressing in place. If dressing becomes saturated, may perform daily dressing changes to the [left/right] hip with dry gauze and either paper tape or medipore tape. -Avoid soaking wound in water (no hot tubs, bathtubs, swimming pools). -May shower after 2 weeks from surgery date. Carefully wash incision with soap and water. Gently pat it dry. Don't rub the incision, or apply creams or lotions. Sit on a shower stool when showering to keep from falling. Weight bearing status -Weightbearing as tolerated to the bilateral lower extremities. Medications -Pain medication per the discharging medical doctor -Enteric coated aspirin 325 mg by mouth twice per day for 28 days from the date of the surgery. [-Resume 50,000 units of vitamin D2 weekly and 1200 mg of calcium supplementation per day.] Other -Knee high ALEX hose 23 hours per day -Consult physical and occupational therapy for mobilization. -Up to chair with assistance at least twice per day. -Follow up with your primary care physician to discuss testing for bone mineral density. Follow-Up -Follow-up with Dr. Dobbins in office in 2 weeks from the surgery date for a post-operative evaluation. -Call the office at [phone] to schedule or confirm your appointment. -Follow up with your primary care physician to discuss testing for bone mineral density - Diet Orders Regular CERTIFICATION: I certify that the transfer of the above named patient to an Extended Care Facility is necessary for the continuing treatment of the diagnosis listed. The above information is true and accurate reflection of patient's current condition. Confidential - Redisclosure prohibited without a patient's written consent.
--- NOTE | 2017-12-01 10:19 | Orthopedic Operative Note ---
Date of procedure: 12/01/17 Procedure: Procedure: Left hip percutaneous pinning Preoperative Diagnosis: Left hip valgus impacted subcapital femoral neck fracture Postoperative Diagnosis: Same Surgeon: Rian Dobbins MD Anesthesia: General EBL: 25 cc Complications: None Components used: Synthes 7.3 mm partially threaded cannulated screws INDICATIONS: This is a 82 yo F who sustained a mechanical fall onto her left hip. She had pain in the hip and inability to ambulate, and presented to the ED and was diagnosed with a valgus impacted subcapital fracture of the left femoral neck. She was admitted for definitive management. Surgical fixation was recommended to prevent completion of the fracture and allow for early mobilization and pain control. After discussing the procedure at length, the patient elected for operative management with a percutaneous pinning of the left hip. The risks and benefits of the procedure were fully explained. Those risks include but are not limited to, infection, neurovascular injury, continued pain, arthritis, stiffness, nonunion, AVN, further injury, need for further surgery, DVT, PE, loss of limb, and loss of life. The patient understood all of these risks and wished to proceed. Informed consent was obtained. No guarantees were stated or implied. OPERATIVE REPORT: After being cleared medically by the hospitalist team, the patient was identified in the holding area. The left lower extremity was marked , the patient was taken to the operating room and general anesthetic was administered on the hospital bed. The patients head, neck and airway were protected by anesthesia through the case. The patient was then transferred to the fracture table and placed in the supine position with a well padded perineal post. All bony prominences were well padded. The left leg was attached to the traction device on the fracture bed. The right leg was then placed in a well leg meehan and positioned out of the way of fluoroscopy. We then obtained fluoroscopic images in AP and lateral planes confirming fracture reduction and alignment. The left lower extremity was then prepped and draped in the normal manner. Preoperative antibiotics were given prior to incision. A surgical time out protocol was then performed. A guidepin was percutaneously placed centrally and slightly inferior across the femoral neck up to the head, ensuring no penetration of the femoral head. A 3 cm incision was then made proximally from the guidepin, and 2 more guidepins were placed, proximal and anterior and posterior to the first pin. Placement of the guidepins were confirmed on AP and lateral fluoroscopy. The appropriate screw lengths were measured, the lateral cortex was opened with a drill and then three 7.3 mm cannulated screws were placed across the fracture site in an inverted triangle pattern. At this point final fluoroscopic images of the left hip in both AP and lateral planes were obtained. The wound was thoroughly irrigated and closed the subcutaneous tissues with 2-0 stratafix. Skin was closed with 3-0 stratafix. We then placed sterile dressings the patient was awoken by anesthesia and transferred to PACU in stable condition. Patient tolerated the procedure well and there were no complications. Postop plan: The patient will be weight bearing as tolerated postoperatively, continue on heparin as scheduled for DVT prophylaxis per the hospitalist. Was there an assistant professor of theater present: No Estimated blood loss (cc): 25
[2017-12-01] MEDS: ADVAIR AER SCH ×2 (11:02→20:30)
[2017-12-01] MEDS ORDERED: OXYCODONE Oral CONC 10 MG/0.5 ML ORAL.SYG SL PRN (11:06)
--- NOTE | 2017-12-01 11:56 | Internal Med Progress Note ---
Hospitalist Progress Note - Encounter Date of Encounter: 12/01/17 Time of Encounter: 11:55 - Subjective Interval History: No acute events overnight - Exam Vitals: Temp Pulse Resp BP Pulse Ox 97.9 F 70 16 129/76 96 12/01/17 11:20 12/01/17 11:20 12/01/17 10:26 12/01/17 11:20 12/01/17 11:20 Exam: complains of pain Gen - Awake, alert, oriented x 3, no acute distress HEENT - NCAT, PERRLA, EOMI, hearing grossly intact, oropharynx benign CV - RRR, normal S1 and S2, no M/R/G, no BLE edema Resp - Normal WOB, CTAB, no W/R/R GI - Soft, NT/ND, no masses, normal bowel sounds, Skin - Warm, dry, no rashes/lesions/ulcers Psych - Normal mood and affect, no depression or anxiety - Assessment and Plan (1) Subcapital fracture of left femur Current Visit: Yes Status: Acute Assessment and Plan: Pt had a fall today after likely tripping on her carpet. CT hip showed acute impacted subcapital left femoral neck fracture. Orthopedic surgery consulted. Pain control PRN. s/p left hip percutaneous pinning on 12/01. Tolerated procedure well with no acute complications. PT consulted for discharge planning (2) New onset a-fib Current Visit: Yes Status: Acute Assessment and Plan: No previous history of afib. Does complain of intermittent dizziness for a number of months. EKG in ER showed afib with hR of 100. Will start on beta blockers BID. 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 Discussed with neuro, patient has high risk of bleeding and will not initiate therapeutic anticoagulation at this time. Will start on aspirin and obtain 2D echo to evaluate cardiac function. (3) Breast cancer Current Visit: No Status: Acute Assessment and Plan: Stable (4) Rheumatoid arthritis Current Visit: No Status: Acute Assessment and Plan: Follow up with outpatient rhuematologist (5) DVT prophylaxis Current Visit: Yes Status: Acute Assessment and Plan: Subcutaneous heparin (6) Diastolic CHF Current Visit: Yes Status: Acute Assessment and Plan: Diastolic dysfunction noted on 2D echo with EF of 55%. No acute CHF exacerbation - Time Spent with Patient Total time spent is greater than 50% in coordination of care (as documented) at patient's floor/unit and/or counseling patient: Internal Medicine: Result - Labs CBC & Chem 7: 11/30/17 00:54 11/30/17 00:54 - ABG Interpretation ABG results: PT/INR, D-dimer PT 11.7 Seconds (9.4-12.1) 11/29/17 14:54 - Impressions Impressions Echocardiogram 11/29/17 15:31 Impressions: LVEF 55%. Normal LV chamber size, wall thickness and function. Mild left ventricular diastolic dysfunction. Normal right ventricular structure and function. Mild aortic regurgitation. Mild mitral regurgitation. Moderate tricuspid regurgitation. Moderate pulmonary hypertension. Left Ventricular Wall Motion: Rest Echo Findings All wall segments showed normal motion. Findings: Study Quality * Technically adequate exam. ECG Findings * Normal sinus rhythm. Left Ventricle * LVEF 55%. * Normal LV chamber size, wall thickness and function. * Mild left ventricular diastolic dysfunction. Right Ventricle * Normal right ventricular structure and function. Left Atrium * Mildly dilated left atrium. Right Atrium * Mildly dilated right atrium. Aortic Valve * Trileaflet aortic valve. * Mildly sclerotic aortic valve leaflets. * Mild aortic regurgitation. * No aortic stenosis. Mitral Valve * Mild mitral annular calcification * Mild mitral regurgitation. * No mitral stenosis. Tricuspid Valve * Normal tricuspid valve structure. * Moderate tricuspid regurgitation. * Moderate pulmonary hypertension. Pulmonic Valve * Normal pulmonic valve structure. * Mild pulmonic regurgitation. Aorta * Normally sized aortic root. Pericardium * The pericardium appears normal. IVC * Normal IVC dimensions and inspiratory collapse. Pulmonary Artery * Normal visualized portions of the main pulmonary artery. Fluoroscopy 12/01/17 00:00 IMPRESSION: Intraprocedural fluoroscopic spot images as above. See separate procedure report for more information. D/ / Tessie Nugent Cha, MD / Tessie Nugent Cha, MD Interpreting Provider: Tessie Nugent Cha, MD Hip X-Ray 12/01/17 10:06 IMPRESSION: Postop changes There is shortening of the femoral neck. This is likely related to the patient's reported prior fracture. D/ / Eugene Beckett / Eugene Beckett Interpreting Provider: Eugene Beckett - VTE Documentation of Mechanical Device: Venous foot pump, device Consult Discharge Plan - Plan Referrals: Hanna Shipman, HOTBED TRANSFER OPERATOR [Primary Care Provider] - (1) Subcapital fracture of left femur Qualifiers: Encounter type: initial encounter Fracture type: closed Qualified Code(s): S72.012A - Unspecified intracapsular fracture of left femur, initial encounter for closed fracture (6) Diastolic CHF Qualifiers: Heart failure chronicity: unspecified Qualified Code(s): I50.30 - Unspecified diastolic (congestive) heart failure
[2017-12-01] MEDS ORDERED: Patient Taking Own Medication 1 EACH SQ STA (13:23)
[2017-12-01] MEDS: *HR* OxyCODONE/APAP 5/325 TABLET PO PRN ×2 (14:00→23:19)
[2017-12-01] MEDS: Ringers Solution, Lactated 1,000 ML IVC SCH (16:58)
[2017-12-01] MEDS: Ibuprofen 600 MG TABLET PO PRN ×2 (20:40→20:50)
[2017-12-02] MEDS: *HR* Heparin 5,000 UNIT/ML VIAL SQ SCH ×2 (06:10→17:08)
[2017-12-02] MEDS: Vitamin B Complex/Vit C/Vit E 1 EACH TABLET PO SCH (07:32)
[2017-12-02] MEDS: Cholecalciferol (D-3) 1,000 UNIT TABLET PO SCH (07:32)
[2017-12-02] MEDS: amLODIPine 5 MG TABLET PO SCH (07:33)
[2017-12-02] MEDS: Aspirin 81 MG TAB.CHEW PO SCH (07:33)
[2017-12-02] MEDS: Folic Acid 1 MG TABLET PO SCH (07:33)
[2017-12-02] MEDS: ADVAIR AER SCH ×2 (07:35→20:41)
[2017-12-02] MEDS: MIRABEGRON 50 MG PO SCH (07:36)
[2017-12-02 07:56] LABS: Basophils % 0.4 %; Eosinophils # 0.2 K/mcL (0.0-0.6); Eosinophils % 2.7 %; Hematocrit 38.5 % (35.3-44.9); Hemoglobin 13.4 g/dL (11.5-15.4); Immature Granulocytes % 0.4 % (0-4); Immature Platelets 4.2 % (1.1-6.1); Lymphocytes # 1.4 K/mcL (0.6-4.6); Lymphocytes % 17.9 %; Mean Corpuscular HGB Conc 34.8 g/dL (31.6-35.5); Mean Corpuscular Hemoglobin 31.9 pg (28.0-33.3); Mean Corpuscular Volume 91.7 fL (83.0-100.0); Mean Platelet Volume 9.2 fL (9.4-12.4); Monocytes # 0.7 K/mcL (0.0-1.3); Monocytes % 9.5 %; Neutrophils # 5.3 K/mcL (1.6-8.9); Platelet Count 185 K/mcL (140-400); Red Cell Distribution Width 13.9 % (11.5-14.5); Segmented Neutrophils % 69.1 %
[2017-12-02] MEDS ORDERED: NON-FORMULARY MEDICATION 1 EACH EACH (Calcium Carbonate/Vitamin D3 [Calcium 500 + Vit D Ca PO SCH (09:00)
[2017-12-02] MEDS: Ringers Solution, Lactated 1,000 ML IVC SCH (11:09)
[2017-12-02] MEDS: traMADol 50 MG TABLET PO PRN ×2 (11:38→20:40)
--- NOTE | 2017-12-02 14:14 | Orthopedics Progress Note ---
Date of Encounter: 12/02/17 Time of Encounter: 14:13 - Assessment and Plan (1) Subcapital fracture of left femur Current Visit: Yes Status: Acute Qualifiers: Encounter type: initial encounter Fracture type: closed Qualified Code(s) : S72.012A - Unspecified intracapsular fracture of left femur, initial encounter for closed fracture Subjective Interval history: No overnight issues. Pain tolerable AFVSS Hg 13.4 RLE: DNVI Dressing clean dry and intact Calves nontender A/P: POD#1 s/p L hip perc pinning Ambulate with PT PO pain control Continue DVT ppx Discharge planning - will need SNF F/u in 2 weeks Objective Vital signs: Vital Signs Temp Pulse Resp BP Pulse Ox 12/02/17 11:54 98.8 F 87 18 118/68 97 12/02/17 06:32 97.7 F 61 17 121/68 98 12/01/17 23:31 98.7 F 72 16 145/71 98 12/01/17 19:08 97.6 F 72 14 119/72 96 12/01/17 17:22 97.9 F 81 16 150/84 96 Intake and Output 12/01/17 12/02/17 12/02/17 23:59 07:59 15:59 Intake Total 100 / 100 480 / 480 Output Total 150 / 150 1350 / 1350 100 / 100 Balance -50 / -50 -1350 / -1350 380 / 380 Intake: IV Fluids 100 / 100 Ancef 2,000 MG In 0.9 % Sodium 100 / 100 Chloride 100 ML @ 200 mls/hr IVPB Q8HR [facility] Rx#:[id number] Oral 480 / 480 Output: Urine 150 / 150 100 / 100 Catheter 150 / 150 1200 / 1200 Other: Meal Lunch Percent of Meal Consumed 100% - Labs CBC & BMP: 12/02/17 07:49 11/30/17 00:54 Labs: Abnormal lab results MPV 9.2 fL (9.4-12.4) L 12/02/17 07:49 Sodium 135 mEq/L (136-145) L 11/30/17 00:54 Creatinine 0.46 mg/dL (0.60-1.20) L 11/30/17 00:54 Glucose 139 mg/dL (70-105) H 11/30/17 00:54 TSH 11.952 mcIU/mL (0.340-5.600) H 11/29/17 13:24 Urine Clarity Cloudy (Clear) A 11/29/17 20:02 Urine Ketones Trace mg/dL (Negative) H 11/29/17 20:02 Urine Blood Trace (Negative) H 11/29/17 20:02 Ur Squamous Epith Cells Many per lpf (None-Few) H 11/29/17 20:02 - VTE Documentation of Mechanical Device: Venous foot pump, device Consult Discharge Plan - Plan Referrals: Hanna Shipman MARINE SERVICE MANAGER [Primary Care Provider] -
[2017-12-02] MEDS ORDERED: 0.9 % Sodium Chloride 1,000 ML IVC SCH ×2 (15:45→16:47)
[2017-12-02 17:16] LABS: Basophils % 0.4 %; Eosinophils # 0.5 K/mcL (0.0-0.6); Eosinophils % 7.2 %; Hematocrit 36.3 % (35.3-44.9); Hemoglobin 12.4 g/dL (11.5-15.4); Immature Granulocytes % 0.3 % (0-4); Lymphocytes # 1.6 K/mcL (0.6-4.6); Lymphocytes % 21.4 %; Mean Corpuscular HGB Conc 34.2 g/dL (31.6-35.5); Mean Corpuscular Hemoglobin 31.6 pg (28.0-33.3); Mean Corpuscular Volume 92.4 fL (83.0-100.0); Mean Platelet Volume 10.1 fL (9.4-12.4); Monocytes # 0.6 K/mcL (0.0-1.3); Monocytes % 8.4 %; Neutrophils # 4.7 K/mcL (1.6-8.9); Platelet Count 176 K/mcL (140-400); Red Blood Count 3.93 M/mcL (3.82-4.97); Red Cell Distribution Width 13.9 % (11.5-14.5); Segmented Neutrophils % 62.3 %
[2017-12-02 17:54] LABS: BUN/Creatinine Ratio 26 (6-26); Blood Urea Nitrogen 19 mg/dL (8-23); Calcium 8.7 mg/dL (8.6-10.3); Carbon Dioxide 25 mEq/L (23-29); Chloride 102 mEq/L (98-107); Glucose 110 mg/dL (70-105); Magnesium 1.8 mg/dL (1.6-2.6); Osmolality,Calculated 285 (280-300); Phosphorous 2.8 mg/dL (2.7-4.5); Potassium 3.4 mEq/L (3.5-5.1); Sodium 136 mEq/L (136-145); eGFR For Non-African Americans > 60 (> 60)
--- NOTE | 2017-12-02 18:21 | Internal Med Progress Note ---
Hospitalist Progress Note - Encounter Date of Encounter: 12/02/17 Time of Encounter: 18:18 - Subjective Interval History: Patient seen and evaluated at bedside, reports that her hip pain it is controlled. Denies lightheadedness, nausea, vomiting. Chest pain, or shortness of breath. Report that the oxycodone she took yesterday night caused her to have hallucination. Denies hallucinations with the tramadol. - Exam Vitals: Temp Pulse Resp BP Pulse Ox 97.9 F 60 16 123/72 94 12/02/17 15:21 12/02/17 15:21 12/02/17 15:21 12/02/17 15:46 12/02/17 15:21 Exam: General: Alert and oriented 3. In no acute distress Cardiovascular:Normal S1 & S2, no rubs, murmurs or gallops. No JVD. Pulse regular. Lungs: Clear to auscultation, no wheezes or crackles. Abdomen:Soft, non-tender, no rigidity. Extremities: No deformity, no edema or tenderness, some ecchymoses at the level of the knee in the left lower extremity.. Neurological:Normal cognition and motor skills. Rest of the physical exam is non contributory - Assessment and Plan (1) Subcapital fracture of left femur Current Visit: Yes Status: Acute Assessment and Plan: CT hip showed acute impacted subcapital left femoral neck fracture. s/p left hip percutaneous pinning on 12/01. Plan: - Tramadol for for pain control - PT/OT recommended SNF - Patient is scheduled for discharge to rehabilitation tomorrow morning (2) Rheumatoid arthritis Current Visit: No Status: Acute Assessment and Plan: Significant deformity in both hands. Plan: - Continue methotrexate and folic acid (3) Diastolic CHF Current Visit: Yes Status: Acute Assessment and Plan: Mild left diastolic dysfunction on echo. Ejection fraction of 55%. Not in acute exacerbation Plan : -will discontinue IV fluid. - will consider having furosemide 20 mg daily by mouth (4) New onset a-fib Current Visit: Yes Status: Acute Assessment and Plan: Rate controlled on a beta toan. (5) COPD (chronic obstructive pulmonary disease) Current Visit: Yes Status: Acute Assessment and Plan: Not an acute exacerbation. Plan: - The patient home medication, on Singulair, Advair Diskus DVT Prophylaxis: High risk for DVT. Plan: - Continue heparin 5000 units subcutaneous every 12 hours - Summary of Assessment and Plan Summary of Assessment and Plan: Patient is scheduled for transfer to rehabilitation tomorrow morning - Time Spent with Patient Total time spent is greater than 50% in coordination of care (as documented) at patient's floor/unit and/or counseling patient: 25 - 35 minutes Plan of Care Discussed with: patient Internal Medicine: Result - Labs CBC & Chem 7: 12/02/17 15:55 12/02/17 15:55 Labs: Short CBC 12/02/17 12/02/17 Range/Units 07:49 15:55 WBC 7.7 7.5 (4.3-11.1) K/mcL Hgb 13.4 12.4 (11.5-15.4) g/dL Hct 38.5 36.3 (35.3-44.9) % Plt Count 185 176 (140-400) K/mcL Neutrophils # 5.3 4.7 (1.6-8.9) K/mcL BMP 12/02/17 15:55 Sodium 136 Potassium 3.4 L Chloride 102 Carbon Dioxide 25 BUN 19 Creatinine 0.72 Glucose 110 H Calcium 8.7 - ABG Interpretation ABG results: PT/INR, D-dimer PT 11.7 Seconds (9.4-12.1) 11/29/17 14:54 - VTE Documentation of Mechanical Device: Venous foot pump, device Consult Discharge Plan - Plan Referrals: Hanna Shipman OPTICIAN MANAGER [Primary Care Provider] - (1) Subcapital fracture of left femur Qualifiers: Encounter type: initial encounter Fracture type: closed Qualified Code(s): S72.012A - Unspecified intracapsular fracture of left femur, initial encounter for closed fracture (3) Diastolic CHF Qualifiers: Heart failure chronicity: unspecified Qualified Code(s): I50.30 - Unspecified diastolic (congestive) heart failure (5) COPD (chronic obstructive pulmonary disease) Qualifiers: COPD type: unspecified COPD Qualified Code(s): J44.9 - Chronic obstructive pulmonary disease, unspecified
[2017-12-02] MEDS ORDERED: Potassium Chloride Elixir 20 MEQ/15 ML UDC PO ONE (18:32)
--- NOTE | 2017-12-02 21:34 | Electrocardiograph Report ---
[address] [place], [place] [address] Test Date: 2017-11-29 Pat Name: Jenny Rodríguez Department: [id number] Room: [facility] Gender: F Director Of Admissions: : 1935 Requested By: Jaime Hunter Order Number: [id number] Reading MD: Audrey Moscoso Measurements Intervals Harvey Rate: 109 P: [place]: QRS: -23 QRSD: 88 T: 99 QT: 338 QTc: 456 Interpretive Statements Atrial fibrillation Borderline left axis deviation Low voltage, precordial leads Electronically Signed On 12-02-2017 21:33:03 EDT by Audrey Moscoso
[2017-12-03] MEDS: Ibuprofen 600 MG TABLET PO PRN (03:20)
[2017-12-03] MEDS: traMADol 50 MG TABLET PO PRN (04:39)
[2017-12-03] MEDS: *HR* Heparin 5,000 UNIT/ML VIAL SQ SCH (04:39)
[2017-12-03 06:22] VITALS: BP 115/69
[2017-12-03] MEDS: Folic Acid 1 MG TABLET PO SCH (08:06)
[2017-12-03] MEDS: Aspirin 81 MG TAB.CHEW PO SCH (08:06)
[2017-12-03] MEDS: Cholecalciferol (D-3) 1,000 UNIT TABLET PO SCH (08:06)
[2017-12-03] MEDS: Vitamin B Complex/Vit C/Vit E 1 EACH TABLET PO SCH (08:07)
[2017-12-03] MEDS: ADVAIR AER SCH (08:07)
[2017-12-03] MEDS: MIRABEGRON 50 MG PO SCH (08:07)
[2017-12-03] MEDS: amLODIPine 5 MG TABLET PO SCH (08:07)
--- NOTE | 2017-12-03 08:38 | Discharge Summary ---
- NOTES TO OUTPATIENT PROVIDER Notes to Outpatient Provider: Follow-up with orthopedic in 2 weeks Orders not resulted at time of discharge: Pending orders 12/01/17 XR hip complete LT [XR] Routine Date of Encounter: 12/03/17 Time of Encounter: 08:36 - Discharge Diagnosis (1) Subcapital fracture of left femur Priority: Primary Status: Acute Assessment and Plan: Traumatic. Following a fall at home. Qualifiers: Encounter type: initial encounter Fracture type: closed Qualified Code(s) : S72.012A - Unspecified intracapsular fracture of left femur, initial encounter for closed fracture (2) Rheumatoid arthritis Priority: Secondary Status: Chronic Qualifiers: Rheumatoid arthritis location: hand Rheumatoid factor presence: unspecified presence Laterality: unspecified laterality Qualified Code(s): M06.9 - Rheumatoid arthritis, unspecified (3) Diastolic CHF Priority: Secondary Status: Chronic Qualifiers: Heart failure chronicity: unspecified Qualified Code(s): I50.30 - Unspecified diastolic (congestive) heart failure (4) New onset a-fib Priority: Secondary Status: Chronic Assessment and Plan: Paroxysmal A. fib. (5) COPD (chronic obstructive pulmonary disease) Priority: Secondary Status: Chronic Qualifiers: COPD type: unspecified COPD Qualified Code(s): J44.9 - Chronic obstructive pulmonary disease, unspecified Hospital course: Ms. Rodríguez is a 82 year old female past medical history significant for COPD, rheumatoid arthritis, hypertension, and breast cancer. Patient presented to the emergency room following a fall after she tripped on the carpet at home. Patient found to have impacted subcapital left femoral neck fracture. Patient underwent left hip percutaneous pinning. During this hospital stay the patient developed paroxysmal A. fib. Which the rate has been controlled with metoprolol. And the rate is back to sinus. The rest of the hospitalization has been uneventful, pain has been controlled with tramadol. Patient developed hallucination with OxyContin. Patient seen and evaluated at bedside and clinically stable to be transferred to rehabilitation Discharge discussed with: patient, family, nurse - Time Spent with Patient Total time spent providing and/or coordinating discharge services: Greater than 30 minutes - Discharge Medications Prescriptions: amLODIPine [Norvasc] 10 mg PO DAILY 30 Days #30 tablet Metoprolol [Lopressor] 25 mg PO BID 30 Days #30 tablet Tramadol HCl [Ultram] 50 mg PO TID PRN 14 Days #30 tab PRN Reason: Mild To Moderate Pain Home Medications: Albuterol Sulfate [Albuterol Inhaler] 2 puff IH Q4-6H PRN 07/06/15 [History] Cholecalciferol (Vitamin D3) [Vitamin D] 1,000 unit PO DAILY 07/06/15 [History] Fluticasone/Salmeterol [Advair 500-50 Diskus] 1 each IH BID 07/06/15 [History] Mirabegron [Myrbetriq] 50 mg PO HS 07/06/15 [History] Montelukast [Singulair] 10 mg PO HS 07/06/15 [History] Omeprazole [PriLOSEC] 20 mg PO DAILY 07/06/15 [History] Vitamin B Complex 1 cap PO DAILY 07/06/15 [History] Calcium Carbonate/Vitamin D3 [Calcium 500 + Vit D Caplet] 1 tab PO DAILY [History] Folic Acid 1 mg PO DAILY 11/29/17 [History] Methotrexate/PF [Rasuvo 20 mg/0.4 ml Autoinj] 10 mg SQ SA 11/29/17 [History] Turmeric Root Extract [Turmeric] 500 mg PO DAILY 11/29/17 [History] Aspirin 81 mg PO DAILY tab.chew 12/03/17 [Rx] Cyclobenzaprine [Flexeril] 5 mg PO ONCE PRN tablet 12/03/17 [Rx] Ibuprofen [Motrin] 600 mg PO Q6HR PRN tablet 12/03/17 [Rx] Metoprolol [Lopressor] 25 mg PO BID 30 Days #30 tablet 12/03/17 [Rx] Patient Taking Own Medication 1 each AER BID each 12/03/17 [Rx] Patient Taking Own Medication 1 each SQ QWEEK each 12/03/17 [Rx] Tramadol HCl [Ultram] 50 mg PO TID PRN 14 Days #30 tab 12/03/17 [Rx] amLODIPine [Norvasc] 10 mg PO DAILY 30 Days #30 tablet 12/03/17 [Rx] Allergies/Adverse Reactions: 3 Allergy/AdvReac Type Severity Reaction Status Date / Time levofloxacin [From Levaquin] Allergy Hives Verified 11/29/17 15:06 Sulfa (Sulfonamide Allergy Rash Verified 11/29/17 15:06 Antibiotics) prednisone AdvReac Dizziness Verified 11/29/17 15:06 Date of admission: 11/29/17 15:00 Primary care physician: Hanna Shipman CNP Consults: 11/29/17 15:54 Consult to Assistant Principal [CONS] Routine Reason for SW Consult: Possible ECF/HH referral 11/29/17 18:32 Consult to Orthopedic Surgery [CONS] Routine Consulting Provider: [facility] Reason for Consult: Left femur fracture Time Notified: 18:33 Call Completed: Yes 12/01/17 11:06 Consult to Occupational Therapy [CONS] Routine Comment: Evaluate, develop and implement POC Reason for Consult: post hip surgery Does patient have active BEDREST order?: No Is patient medically & hemodynamically stable?: Yes Consult to Orthopedic Navigator [CONS] [CONS] Routine Consult to Physical Therapy [CONS] Routine Comment: Evaluate, develop and implement POC Reason for Consult: post hip surgery Does patient have active BEDREST order?: No Is patient medically & hemodynamically stable?: Yes Consult to Assistant Principal [CONS] Routine Reason for SW Consult: post -op hip fracture RT Post Op Consult [CONS] Routine - Constitutional Vitals: Temp Pulse Resp BP Pulse Ox 98.1 F 61 16 115/69 94 12/03/17 06:20 12/03/17 06:20 12/03/17 06:20 12/03/17 06:20 12/03/17 06:20 Exam: General: Alert and oriented 3. In no acute distress Cardiovascular:Normal S1 & S2, no rubs, murmurs or gallops. No JVD. Pulse regular. Lungs: Clear to auscultation, no wheezes or crackles. Abdomen:Soft, non-tender, no rigidity. Extremities: No deformity, no edema or tenderness, some ecchymoses at the level of the knee in the left lower extremity.. Neurological:Normal cognition and motor skills. Rest of the physical exam is non contributory - Patient Status Disposition: Transfer SNF Condition: Fair Functional capacity at discharge: independent ambulation Overall status at discharge: patient is progressing back to baseline - Discharge Instructions Follow Up With: Hanna Shipman CNP [Primary Care Provider] - - Diet and Activity Activity: as per physical therapy Diet: advance to your usual diet - VTE Documentation of Mechanical Device: Venous foot pump, device
[2017-12-03] MEDS ORDERED: Furosemide 20 MG/2 ML VIAL IVP SCH (09:00)
[2017-12-06] MEDS ORDERED: Patient Taking Own Medication 1 EACH SQ SCH (09:00)
[2017-12-06] MEDS ORDERED: METHOTREXATE 10 MG SQ SCH (10:00)
== END 2017-12-03 11:35 | DRG 481 ==
LOC: EMEROOARM 11:00 → 3NENU 15:00 → SUATTDRO 15:00 → 3NENU 16:09
PROVIDERS: ADMIT Student in an Organized Health Care Education/Training Program; ATTEND Internal Medicine

== ENCOUNTER 2019-01-30 15:02 | Inpatient (IN) ==
[2019-01-30 17:41] LABS: Basophils % 0.5 %; Eosinophils # 0.1 K/mcL (0.0-0.6); Eosinophils % 0.9 %; Hematocrit 40.6 % (35.3-44.9); Hemoglobin 14.1 g/dL (11.5-15.4); Immature Granulocytes % 0.5 % (0-4); Lymphocytes # 0.9 K/mcL (0.6-4.6); Mean Corpuscular HGB Conc 34.7 g/dL (31.6-35.5); Mean Corpuscular Hemoglobin 32.8 pg (28.0-33.3); Mean Corpuscular Volume 94.4 fL (83.0-100.0); Mean Platelet Volume 9.6 fL (9.4-12.4); Monocytes # 0.5 K/mcL (0.0-1.3); Monocytes % 5.1 %; Neutrophils # 7.4 K/mcL (1.6-8.9); Platelet Count 186 K/mcL (140-400); Red Cell Distribution Width 13.8 % (11.5-14.5); White Blood Count 8.9 K/mcL (4.3-11.1)
[2019-01-30 17:48] LABS: BUN/Creatinine Ratio 19 (6-26); Blood Urea Nitrogen 12 mg/dL (8-23); Calcium 8.9 mg/dL (8.6-10.3); Carbon Dioxide 26 mEq/L (23-29); Chloride 106 mEq/L (98-107); Glucose 101 mg/dL (70-105); Osmolality,Calculated 286 (280-300); Potassium 4.2 mEq/L (3.5-5.1); Sodium 138 mEq/L (136-145); eGFR For African Americans > 60 (> 60); eGFR For Non-African Americans > 60 (> 60)
[2019-01-30] MEDS ORDERED: *HR* FentaNYL (PF) 100 MCG/2 ML VIAL IVP ONE (18:12)
[2019-01-30] MEDS ORDERED: Ondansetron ODT 4 MG TAB.RAPDIS SL PRN (20:36)
[2019-01-30] MEDS ORDERED: Naloxone 0.4 MG/ML INJ IVP PRN (20:36)
[2019-01-30 20:37] LABS: Prothrombin Time 11.7 Seconds (9.4-12.1)
[2019-01-30 20:39] LABS: Activated Partial Thrombo Time 32.9 Seconds (26.0-36.0)
[2019-01-30] MEDS: Budesonide/Formoterol 160/4.5 1 PUFF INH IH SCH (21:48)
[2019-01-30] MEDS ORDERED: Acetaminophen IV 1,000 MG/100 ML INFUS..BTL IVPB ONE (22:33)
[2019-01-31] MEDS: *HR* Heparin 5,000 UNIT/ML VIAL SQ SCH ×2 (00:08→04:48)
[2019-01-31] MEDS ORDERED: Melatonin 3 MG TABLET PO PRN ×2 (01:12→16:53)
[2019-01-31 05:52] LABS: Basophils % 0.5 %; Eosinophils # 0.1 K/mcL (0.0-0.6); Hematocrit 38.9 % (35.3-44.9); Immature Granulocytes % 0.3 % (0-4); Lymphocytes # 0.7 K/mcL (0.6-4.6); Mean Corpuscular HGB Conc 33.4 g/dL (31.6-35.5); Mean Corpuscular Hemoglobin 32.5 pg (28.0-33.3); Mean Corpuscular Volume 97.3 fL (83.0-100.0); Mean Platelet Volume 9.6 fL (9.4-12.4); Monocytes # 0.4 K/mcL (0.0-1.3); Monocytes % 5.9 %; Neutrophils # 5.4 K/mcL (1.6-8.9); Platelet Count 171 K/mcL (140-400); Red Cell Distribution Width 13.8 % (11.5-14.5); Segmented Neutrophils % 81.3 %; White Blood Count 6.6 K/mcL (4.3-11.1)
[2019-01-31 06:15] LABS: BUN/Creatinine Ratio 17 (6-26); Blood Urea Nitrogen 11 mg/dL (8-23); Calcium 8.3 mg/dL (8.6-10.3); Carbon Dioxide 27 mEq/L (23-29); Chloride 104 mEq/L (98-107); Glucose 119 mg/dL (70-105); Osmolality,Calculated 287 (280-300); Potassium 3.8 mEq/L (3.5-5.1); Sodium 138 mEq/L (136-145); eGFR For African Americans > 60 (> 60); eGFR For Non-African Americans > 60 (> 60)
[2019-01-31] MEDS: Budesonide/Formoterol 160/4.5 1 PUFF INH IH SCH (08:05)
[2019-01-31] MEDS ORDERED: Ibuprofen 200 MG TABLET PO ONE ×2 (08:55→16:53)
[2019-01-31] MEDS ORDERED: Sennosides/Docusate Sodium TABLET PO PRN ×2 (09:42→16:53)
[2019-01-31] MEDS ORDERED: Dextrose Gel 15 GM/37.5 ML TUBE PO PRN ×4 (09:50→16:53)
[2019-01-31] MEDS ORDERED: *HR* Dextrose 50 % in Water (Syg) 50 ML SYRINGE IVP PRN ×2 (09:50→16:53)
[2019-01-31] MEDS ORDERED: D5% in Water 1,000 ML IVC PRN ×2 (09:50→16:53)
[2019-01-31] MEDS ORDERED: D5% in Lactated Ringers 1,000 ML IVC SCH ×2 (10:00→16:53)
[2019-01-31] MEDS ORDERED: CeFAZolin Syr 2,000MG/20 ML 2,000 MG/20 ML SYRINGE IVPB ONE (11:00)
[2019-01-31] MEDS ORDERED: *HR* HYDROmorphone 2 MG/ML SYRINGE IVP PRN (11:04)
[2019-01-31] MEDS ORDERED: *HR* Labetalol 20 MG/4 ML SYRINGE IVP PRN (11:44)
[2019-01-31] MEDS ORDERED: *HR* Meperidine 25 MG/ML SYRINGE IVP PRN (11:45)
[2019-01-31] MEDS ORDERED: *HR* Promethazine 25 MG/ML VIAL IVP PRN (11:45)
[2019-01-31] MEDS ORDERED: *HR* HYDROmorphone (PF) 1 MG/ML SYRINGE IVP PRN (11:45)
[2019-01-31] MEDS ORDERED: *HR* FentaNYL (PF) 100 MCG/2 ML VIAL IVP PRN (11:45)
[2019-01-31] MEDS ORDERED: *HR* Labetalol 20 MG/4 ML SYRINGE IVP ONE (11:45)
[2019-01-31] MEDS ORDERED: Insulin LISPRO 300 UNITS/3 ML VIAL SQ SCH (12:00)
[2019-01-31] MEDS ORDERED: *HR* FentaNYL (PF) 100 MCG/2 ML VIAL ONE (14:37)
[2019-01-31] MEDS ORDERED: Acetaminophen IV 1,000 MG/100 ML INFUS..BTL ONE (14:37)
[2019-01-31] MEDS ORDERED: EPHEDrine 50 MG/ML VIAL ONE (14:46)
[2019-01-31] MEDS ORDERED: *HR* Propofol 200 MG/20 ML VIAL IVP ONE (15:33)
[2019-01-31] MEDS ORDERED: Ondansetron ODT 4 MG TAB.RAPDIS SL PRN ×2 (16:53→17:28)
[2019-01-31] MEDS ORDERED: Naloxone 0.4 MG/ML INJ IVP PRN (16:53)
[2019-01-31] MEDS: Insulin LISPRO 300 UNITS/3 ML VIAL SQ SCH ×2 (19:33→22:53)
[2019-01-31] MEDS ORDERED: Acetaminophen IV 500 MG/50 ML INFUS..BTL IVPB ONE (20:27)
[2019-01-31] MEDS ORDERED: Budesonide/Formoterol 160/4.5 1 PUFF INH IH SCH (22:00)
[2019-01-31] MEDS: FLUTICASONE IH SCH (22:36)
[2019-01-31] MEDS: SALMETEROL IH SCH (22:36)
[2019-01-31] MEDS: ceFAZolin 1,000 MG in Water for inj. (sterile) 10 ML IVP SCH (22:38)
[2019-02-01 04:20] LABS: Basophils % 0.5 %; Eosinophils # 0.4 K/mcL (0.0-0.6); Eosinophils % 4.7 %; Hematocrit 37.2 % (35.3-44.9); Hemoglobin 13.1 g/dL (11.5-15.4); Immature Granulocytes % 0.8 % (0-4); Lymphocytes # 1.2 K/mcL (0.6-4.6); Lymphocytes % 16.4 %; Mean Corpuscular HGB Conc 35.2 g/dL (31.6-35.5); Mean Corpuscular Hemoglobin 32.6 pg (28.0-33.3); Mean Corpuscular Volume 92.5 fL (83.0-100.0); Mean Platelet Volume 10.3 fL (9.4-12.4); Monocytes # 0.8 K/mcL (0.0-1.3); Monocytes % 11.3 %; Neutrophils # 4.9 K/mcL (1.6-8.9); Platelet Count 145 K/mcL (140-400); Red Blood Count 4.02 M/mcL (3.82-4.97); Red Cell Distribution Width 13.6 % (11.5-14.5); Segmented Neutrophils % 66.3 %; White Blood Count 7.4 K/mcL (4.3-11.1)
[2019-02-01 05:30] LABS: BUN/Creatinine Ratio 16 (6-26); Blood Urea Nitrogen 9 mg/dL (8-23); Calcium 7.8 mg/dL (8.6-10.3); Carbon Dioxide 23 mEq/L (23-29); Chloride 105 mEq/L (98-107); Glucose 117 mg/dL (70-105); Magnesium 1.9 mg/dL (1.6-2.6); Osmolality,Calculated 280 (280-300); Phosphorous 1.5 mg/dL (2.7-4.5); Potassium 4.1 mEq/L (3.5-5.1); Sodium 135 mEq/L (136-145); eGFR For African Americans > 60 (> 60); eGFR For Non-African Americans > 60 (> 60)
[2019-02-01] MEDS: Insulin LISPRO 300 UNITS/3 ML VIAL SQ SCH (06:01)
[2019-02-01] MEDS: ceFAZolin 1,000 MG in Water for inj. (sterile) 10 ML IVP SCH ×2 (07:49→17:24)
[2019-02-01 12:12] LABS: ABG Base Excess 3 mEq/L (-2 to 3); ABG HCO3 27 mEq/L (21-27); ABG Oxygen Saturation 88 % (95-98); ABG PCO2 40 mmHg (35-45); ABG PH 7.44 pH Units (7.32-7.45); ABG PO2 53 mmHg (85-104); ABG TCO2 28 mEq/L (20-26)
[2019-02-01] MEDS ORDERED: 0.9 % Sodium Chloride 1,000 ML IVC ONE (12:51)
[2019-02-01] MEDS ORDERED: 0.9 % Sodium Chloride 500 ML IVC ONE (12:52)
[2019-02-01 13:48] LABS: Basophils % 0.6 %; Eosinophils # 0.3 K/mcL (0.0-0.6); Eosinophils % 4.6 %; Hematocrit 34.1 % (35.3-44.9); Hemoglobin 11.7 g/dL (11.5-15.4); Lymphocytes # 1.2 K/mcL (0.6-4.6); Lymphocytes % 16.9 %; Mean Corpuscular HGB Conc 34.3 g/dL (31.6-35.5); Mean Corpuscular Hemoglobin 33.1 pg (28.0-33.3); Mean Corpuscular Volume 96.3 fL (83.0-100.0); Mean Platelet Volume 9.8 fL (9.4-12.4); Monocytes # 0.8 K/mcL (0.0-1.3); Monocytes % 11.2 %; Neutrophils # 4.7 K/mcL (1.6-8.9); Platelet Count 135 K/mcL (140-400); Red Blood Count 3.54 M/mcL (3.82-4.97); Red Cell Distribution Width 13.8 % (11.5-14.5); Segmented Neutrophils % 65.7 %; White Blood Count 7.1 K/mcL (4.3-11.1)
[2019-02-01 14:07] LABS: Albumin 2.6 g/dL (3.5-5.7); Albumin/Globulin Ratio 1.4 (1.1-2.2); Bilirubin,Direct 0.2 mg/dL (0.0-0.2); Bilirubin,Indirect 0.7 mg/dL (0.0-1.0); Bilirubin,Total 0.9 mg/dL (0.3-1.0); Globulin 1.9 g/dL (2.4-3.5); Total Protein 4.5 g/dL (6.4-8.9)
[2019-02-01 14:45] LABS: Bilirubin,Urine Small (Negative); Blood,Urine Negative (Negative); Clarity,Urine Clear (Clear); Color,Urine Orange (Yellow); Glucose,Urine (UA) Normal (Normal); Ketones,Urine Trace mg/dL (Negative); Leukocyte Esterase,Urine Small (Negative); Nitrite,Urine Negative (Negative); Protein,Urine Trace mg/dL (Neg-Trace); Specific Gravity,Urine 1.028 (1.010-1.025); Urobilinogen,Urine Normal (Normal)
[2019-02-01 14:46] LABS: Bacteria,Urine None Seen per hpf (None-Few); Hyaline Casts,Urine None Seen per lpf (None-Few); Squamous Epithelial Cell,Urine Many per lpf (None-Few)
[2019-02-01] MEDS ORDERED: D5% in Lactated Ringers 1,000 ML IVC SCH (15:00)
[2019-02-01] MEDS: *HR* Heparin 5,000 UNIT/ML VIAL SQ SCH (17:24)
[2019-02-01] MEDS: SALMETEROL IH SCH (20:28)
[2019-02-01] MEDS: FLUTICASONE IH SCH (20:28)
[2019-02-02 04:08] LABS: Basophils % 0.5 %; Eosinophils # 0.3 K/mcL (0.0-0.6); Eosinophils % 4.7 %; Hematocrit 33.8 % (35.3-44.9); Hemoglobin 12.1 g/dL (11.5-15.4); Immature Granulocytes % 0.6 % (0-4); Lymphocytes # 1.1 K/mcL (0.6-4.6); Lymphocytes % 16.4 %; Mean Corpuscular HGB Conc 35.8 g/dL (31.6-35.5); Mean Corpuscular Volume 92.1 fL (83.0-100.0); Mean Platelet Volume 9.9 fL (9.4-12.4); Monocytes # 0.6 K/mcL (0.0-1.3); Monocytes % 9.4 %; Neutrophils # 4.4 K/mcL (1.6-8.9); Platelet Count 126 K/mcL (140-400); Red Blood Count 3.67 M/mcL (3.82-4.97); Red Cell Distribution Width 13.5 % (11.5-14.5); Segmented Neutrophils % 68.4 %; White Blood Count 6.4 K/mcL (4.3-11.1)
[2019-02-02 04:27] LABS: BUN/Creatinine Ratio 13 (6-26); Blood Urea Nitrogen 7 mg/dL (8-23); Calcium 7.4 mg/dL (8.6-10.3); Carbon Dioxide 24 mEq/L (23-29); Chloride 101 mEq/L (98-107); Glucose 130 mg/dL (70-105); Magnesium 1.6 mg/dL (1.6-2.6); Osmolality,Calculated 270 (280-300); Phosphorous 1.5 mg/dL (2.7-4.5); Potassium 3.3 mEq/L (3.5-5.1); Sodium 130 mEq/L (136-145); eGFR For African Americans > 60 (> 60); eGFR For Non-African Americans > 60 (> 60)
[2019-02-02] MEDS: *HR* Heparin 5,000 UNIT/ML VIAL SQ SCH ×2 (06:12→16:31)
[2019-02-02] MEDS ORDERED: Potassium Phosphate 44 MEQ in 0.9 % Sodium Chloride 250 ML IVPB ONE (07:38)
[2019-02-02] MEDS ORDERED: Aminoglycoside Consult 1 EACH MC ONE (14:49)
[2019-02-02] MEDS: Ibuprofen 800 MG TABLET PO PRN (21:27)
[2019-02-02] MEDS: SALMETEROL IH SCH (22:26)
[2019-02-02] MEDS: FLUTICASONE IH SCH (22:26)
[2019-02-03] MEDS ORDERED: 0.9 % Sodium Chloride 500 ML IVC ONE (03:10)
[2019-02-03 04:50] LABS: Basophils % 0.4 %; Eosinophils # 0.4 K/mcL (0.0-0.6); Eosinophils % 7.3 %; Hematocrit 30.3 % (35.3-44.9); Immature Granulocytes % 0.4 % (0-4); Lymphocytes # 0.9 K/mcL (0.6-4.6); Lymphocytes % 17.5 %; Mean Corpuscular Hemoglobin 32.7 pg (28.0-33.3); Mean Corpuscular Volume 96.2 fL (83.0-100.0); Mean Platelet Volume 9.6 fL (9.4-12.4); Monocytes # 0.5 K/mcL (0.0-1.3); Monocytes % 9.7 %; Neutrophils # 3.2 K/mcL (1.6-8.9); Platelet Count 100 K/mcL (140-400); Red Blood Count 3.15 M/mcL (3.82-4.97); Red Cell Distribution Width 13.3 % (11.5-14.5); Segmented Neutrophils % 64.7 %
[2019-02-03 04:57] LABS: Hemoglobin 10.3 g/dL (11.5-15.4)
[2019-02-03 05:12] LABS: BUN/Creatinine Ratio 12 (6-26); Blood Urea Nitrogen 5 mg/dL (8-23); Calcium 7.4 mg/dL (8.6-10.3); Carbon Dioxide 22 mEq/L (23-29); Chloride 101 mEq/L (98-107); Glucose 104 mg/dL (70-105); Magnesium 1.6 mg/dL (1.6-2.6); Osmolality,Calculated 270 (280-300); Phosphorous 1.9 mg/dL (2.7-4.5); Potassium 3.6 mEq/L (3.5-5.1); Sodium 131 mEq/L (136-145); eGFR For African Americans > 60 (> 60); eGFR For Non-African Americans > 60 (> 60)
[2019-02-03] MEDS: *HR* Heparin 5,000 UNIT/ML VIAL SQ SCH ×2 (05:57→18:33)
[2019-02-03] MEDS: Ibuprofen 800 MG TABLET PO PRN (07:47)
[2019-02-03] MEDS ORDERED: Ringers Solution, Lactated 1,000 ML IVC SCH (12:15)
[2019-02-03] MEDS ORDERED: Ringers Solution, Lactated 500 ML IVC SCH (12:17)
[2019-02-03] MEDS ORDERED: Lactulose Oral Soln 20 GM/30 ML UDC PO PRN (12:53)
[2019-02-03] MEDS: SALMETEROL IH SCH (21:58)
[2019-02-03] MEDS: FLUTICASONE IH SCH (21:58)
[2019-02-04 04:33] LABS: Basophils % 0.7 %; Eosinophils # 0.4 K/mcL (0.0-0.6); Eosinophils % 8.4 %; Hematocrit 30.6 % (35.3-44.9); Hemoglobin 10.8 g/dL (11.5-15.4); Immature Granulocytes % 0.5 % (0-4); Lymphocytes # 0.7 K/mcL (0.6-4.6); Lymphocytes % 16.5 %; Mean Corpuscular HGB Conc 35.3 g/dL (31.6-35.5); Mean Corpuscular Hemoglobin 32.6 pg (28.0-33.3); Mean Corpuscular Volume 92.4 fL (83.0-100.0); Mean Platelet Volume 10.2 fL (9.4-12.4); Monocytes # 0.4 K/mcL (0.0-1.3); Monocytes % 9.7 %; Neutrophils # 2.8 K/mcL (1.6-8.9); Platelet Count 146 K/mcL (140-400); Red Blood Count 3.31 M/mcL (3.82-4.97); Red Cell Distribution Width 13.4 % (11.5-14.5); Segmented Neutrophils % 64.2 %; White Blood Count 4.3 K/mcL (4.3-11.1)
[2019-02-04 04:51] LABS: BUN/Creatinine Ratio 15 (6-26); Blood Urea Nitrogen 7 mg/dL (8-23); Carbon Dioxide 27 mEq/L (23-29); Chloride 105 mEq/L (98-107); Glucose 102 mg/dL (70-105); Magnesium 1.7 mg/dL (1.6-2.6); Osmolality,Calculated 282 (280-300); Phosphorous 2.2 mg/dL (2.7-4.5); Potassium 3.7 mEq/L (3.5-5.1); Sodium 137 mEq/L (136-145); eGFR For African Americans > 60 (> 60); eGFR For Non-African Americans > 60 (> 60)
[2019-02-04] MEDS: Ibuprofen 800 MG TABLET PO PRN (05:40)
[2019-02-04] MEDS: *HR* Heparin 5,000 UNIT/ML VIAL SQ SCH (05:41)
[2019-02-04 14:39] VITALS: BP 111/70
== END 2019-02-04 14:50 | DRG 481 ==
LOC: EMEROOARM 15:02 → 3NENU 15:02 → SUATTDRO 23:30
PROVIDERS: ADMIT Internal Medicine; ATTEND Internal Medicine

== ENCOUNTER 2019-04-30 13:15 | Inpatient (IN) ==
[2019-04-30] MEDS ORDERED: 0.9 % Sodium Chloride 250 ML IVC ONE (13:22)
[2019-04-30 13:57] LABS: INR 1.1; Prothrombin Time 12.1 Seconds (9.4-12.1)
[2019-04-30 13:59] LABS: Activated Partial Thrombo Time 36.4 Seconds (26.0-36.0); Basophils # 0.1 K/mcL (0.0-0.2); Eosinophils # 0.4 K/mcL (0.0-0.6); Eosinophils % 7.2 %; Hematocrit 34.8 % (35.3-44.9); Hemoglobin 11.7 g/dL (11.5-15.4); Immature Granulocytes % 0.5 % (0-4); Lymphocytes # 1.6 K/mcL (0.6-4.6); Lymphocytes % 25.5 %; Mean Corpuscular HGB Conc 33.6 g/dL (31.6-35.5); Mean Corpuscular Hemoglobin 31.3 pg (28.0-33.3); Mean Platelet Volume 9.3 fL (9.4-12.4); Monocytes # 0.5 K/mcL (0.0-1.3); Monocytes % 8.5 %; Neutrophils # 3.5 K/mcL (1.6-8.9); Platelet Count 280 K/mcL (140-400); Red Blood Count 3.74 M/mcL (3.82-4.97); Red Cell Distribution Width 14.4 % (11.5-14.5); Segmented Neutrophils % 57.3 %; White Blood Count 6.1 K/mcL (4.3-11.1)
[2019-04-30 14:18] LABS: Large Platelets Present (Not Present); Platelet Estimate Normal (Normal); Reactive Lymphocytes Present (Not Present)
[2019-04-30 14:19] LABS: Alanine Aminotransferase 10 Units/L (7-52); Albumin 3.7 g/dL (3.5-5.7); Albumin/Globulin Ratio 1.3 (1.1-2.2); Alkaline Phosphatase 76 Units/L (34-104); Aspartate Amino Transferase 21 Units/L (13-39); BUN/Creatinine Ratio 18 (6-26); Bilirubin,Total 0.5 mg/dL (0.3-1.0); Blood Urea Nitrogen 10 mg/dL (8-23); Calcium 9.1 mg/dL (8.6-10.3); Carbon Dioxide 21 mEq/L (23-29); Chloride 93 mEq/L (98-107); Globulin 2.8 g/dL (2.4-3.5); Glucose 103 mg/dL (70-105); Osmolality,Calculated 255 (280-300); Potassium 3.9 mEq/L (3.5-5.1); Sodium 123 mEq/L (136-145); Total Protein 6.5 g/dL (6.4-8.9); Troponin I < 0.03 ng/mL (< 0.04); eGFR For African Americans > 60 (> 60); eGFR For Non-African Americans > 60 (> 60)
[2019-04-30 14:20] LABS: Bilirubin,Urine Negative (Negative); Blood,Urine Negative (Negative); Clarity,Urine Clear (Clear); Color,Urine Yellow (Yellow); Glucose,Urine (UA) Normal (Normal); Ketones,Urine Negative (Negative); Leukocyte Esterase,Urine Negative (Negative); Nitrite,Urine Negative (Negative); PH,Urine 6.5 pH Units (5.0-8.0); Protein,Urine Negative (Neg-Trace); Specific Gravity,Urine 1.019 (1.010-1.025); Urobilinogen,Urine Normal (Normal)
[2019-04-30] MEDS ORDERED: Ondansetron ODT 4 MG TAB.RAPDIS SL PRN (16:10)
[2019-04-30] MEDS ORDERED: Ringers Solution, Lactated 1,000 ML IVC ONE (16:15)
[2019-04-30] MEDS ORDERED: 0.9 % Sodium Chloride 1,000 ML IVC ONE (16:16)
[2019-04-30] MEDS ORDERED: Acetaminophen 325 MG TABLET PO ONE (21:36)
[2019-04-30 22:41] LABS: BUN/Creatinine Ratio 16 (6-26); Blood Urea Nitrogen 7 mg/dL (8-23); Calcium 8.8 mg/dL (8.6-10.3); Carbon Dioxide 21 mEq/L (23-29); Chloride 93 mEq/L (98-107); Glucose 90 mg/dL (70-105); Osmolality,Calculated 252 (280-300); Potassium 3.9 mEq/L (3.5-5.1); Sodium 122 mEq/L (136-145); eGFR For African Americans > 60 (> 60); eGFR For Non-African Americans > 60 (> 60)
[2019-04-30 23:25] LABS: Adenovirus Not Detected (Not Detect); Bordetella Pertussis Not Detected (Not Detect); Chlamydophila pneumoniae Not Detected (Not Detect); Coronavirus 229E Not Detected (Not Detect); Coronavirus HKU1 Not Detected (Not Detect); Coronavirus NL63 Not Detected (Not Detect); Coronavirus OC43 Not Detected (Not Detect); Human Metapneumovirus Not Detected (Not Detect); Human Rhinovirus/Enterovirus Not Detected (Not Detect); Influenza A Subtype 2009 H1 Not Detected (Not Detect); Influenza B Not Detected (Not Detect); Mycoplasma pneumoniae Not Detected (Not Detect); Parainfluenza Virus 1 Not Detected (Not Detect); Parainfluenza Virus 2 Not Detected (Not Detect); Parainfluenza Virus 3 Not Detected (Not Detect); Parainfluenza Virus 4 Not Detected (Not Detect); Respiratory Syncytial Virus Not Detected (Not Detect)
[2019-04-30] MEDS ORDERED: tiZANidine 4 MG TABLET PO ONE (23:38)
[2019-05-01 03:28] LABS: Basophils # 0.1 K/mcL (0.0-0.2); Eosinophils # 0.4 K/mcL (0.0-0.6); Eosinophils % 7.4 %; Hematocrit 30.2 % (35.3-44.9); Hemoglobin 10.5 g/dL (11.5-15.4); Immature Granulocytes % 0.4 % (0-4); Lymphocytes # 1.2 K/mcL (0.6-4.6); Lymphocytes % 22.9 %; Mean Corpuscular HGB Conc 34.8 g/dL (31.6-35.5); Mean Corpuscular Volume 89.1 fL (83.0-100.0); Mean Platelet Volume 9.3 fL (9.4-12.4); Monocytes # 0.5 K/mcL (0.0-1.3); Monocytes % 8.8 %; Neutrophils # 3.1 K/mcL (1.6-8.9); Platelet Count 251 K/mcL (140-400); Red Blood Count 3.39 M/mcL (3.82-4.97); Red Cell Distribution Width 14.2 % (11.5-14.5); Segmented Neutrophils % 59.5 %; White Blood Count 5.3 K/mcL (4.3-11.1)
[2019-05-01 03:56] LABS: BUN/Creatinine Ratio 16 (6-26); Blood Urea Nitrogen 8 mg/dL (8-23); Calcium 8.5 mg/dL (8.6-10.3); Carbon Dioxide 20 mEq/L (23-29); Chloride 92 mEq/L (98-107); Glucose 80 mg/dL (70-105); Osmolality,Calculated 249 (280-300); Potassium 3.9 mEq/L (3.5-5.1); Sodium 121 mEq/L (136-145); eGFR For African Americans > 60 (> 60); eGFR For Non-African Americans > 60 (> 60)
[2019-05-01] MEDS ORDERED: (Diclofenac Sodium [Voltaren] 1 APPL) TP PRN (12:16)
[2019-05-01 16:09] LABS: BUN/Creatinine Ratio 13 (6-26); Blood Urea Nitrogen 7 mg/dL (8-23); Calcium 8.7 mg/dL (8.6-10.3); Carbon Dioxide 21 mEq/L (23-29); Chloride 90 mEq/L (98-107); Glucose 84 mg/dL (70-105); Osmolality,Calculated 247 (280-300); Potassium 3.7 mEq/L (3.5-5.1); Sodium 120 mEq/L (136-145); eGFR For African Americans > 60 (> 60); eGFR For Non-African Americans > 60 (> 60)
[2019-05-01] MEDS: Furosemide 20 MG TABLET PO SCH (17:19)
[2019-05-01] MEDS ORDERED: Melatonin 3 MG TABLET PO PRN (18:04)
[2019-05-01 21:31] LABS: BUN/Creatinine Ratio 14 (6-26); Blood Urea Nitrogen 7 mg/dL (8-23); Calcium 8.8 mg/dL (8.6-10.3); Carbon Dioxide 20 mEq/L (23-29); Chloride 88 mEq/L (98-107); Glucose 94 mg/dL (70-105); Osmolality,Calculated 246 (280-300); Potassium 3.6 mEq/L (3.5-5.1); Sodium 119 mEq/L (136-145); eGFR For African Americans > 60 (> 60); eGFR For Non-African Americans > 60 (> 60)
[2019-05-02 02:11] LABS: Hematocrit 35.5 % (35.3-44.9); Mean Corpuscular HGB Conc 36.3 g/dL (31.6-35.5); Mean Corpuscular Hemoglobin 31.5 pg (28.0-33.3); Mean Corpuscular Volume 86.6 fL (83.0-100.0); Mean Platelet Volume 9.2 fL (9.4-12.4); Platelet Count 300 K/mcL (140-400); Red Cell Distribution Width 14.1 % (11.5-14.5); White Blood Count 7.8 K/mcL (4.3-11.1)
[2019-05-02 02:19] LABS: BUN/Creatinine Ratio 14 (6-26); Blood Urea Nitrogen 8 mg/dL (8-23); Calcium 8.7 mg/dL (8.6-10.3); Carbon Dioxide 19 mEq/L (23-29); Chloride 89 mEq/L (98-107); Glucose 82 mg/dL (70-105); Osmolality,Calculated 245 (280-300); Potassium 3.8 mEq/L (3.5-5.1); Sodium 119 mEq/L (136-145); eGFR For African Americans > 60 (> 60); eGFR For Non-African Americans > 60 (> 60)
[2019-05-02 02:27] LABS: Hemoglobin 12.9 g/dL (11.5-15.4)
[2019-05-02] MEDS ORDERED: 0.9 % Sodium Chloride 1,000 ML IVC SCH (03:00)
[2019-05-02] MEDS ORDERED: Cosyntropin 250 MCG/2 ML VIAL IVP ONE (08:31)
[2019-05-02] MEDS ORDERED: Gadolinium Contrast Agent (WT Based) IV PRN (08:38)
[2019-05-02] MEDS: Cholecalciferol (D-3) 1,000 UNIT (25MCG) TABLET PO SCH (08:59)
[2019-05-02] MEDS: carvediloL 6.25 MG TABLET PO SCH (08:59)
[2019-05-02] MEDS: Folic Acid 1 MG TABLET PO SCH (09:00)
[2019-05-02] MEDS: Furosemide 20 MG TABLET PO SCH (09:09)
[2019-05-02 10:34] LABS: Sodium 121 mEq/L (136-145)
[2019-05-02] MEDS: Budesonide/Formoterol 80/4.5 1 PUFF INH IH SCH (10:43)
[2019-05-02 12:24] LABS: BUN/Creatinine Ratio 18 (6-26); Blood Urea Nitrogen 11 mg/dL (8-23); Calcium 8.5 mg/dL (8.6-10.3); Carbon Dioxide 15 mEq/L (23-29); Chloride 92 mEq/L (98-107); Glucose 93 mg/dL (70-105); Osmolality,Calculated 251 (280-300); Potassium 4.1 mEq/L (3.5-5.1); eGFR For African Americans > 60 (> 60); eGFR For Non-African Americans > 60 (> 60)
[2019-05-02] MEDS ORDERED: Isovue-370 500 ML BOTTLE IVP ONE (12:31)
[2019-05-02] MEDS: Ketorolac 15 MG/ML VIAL IM PRN (12:46)
[2019-05-02] MEDS: 0.9 % Sodium Chloride 1,000 ML IVC SCH ×3 (15:26→22:59)
[2019-05-02] MEDS: Hydrocortisone 10 MG TABLET PO SCH (15:39)
[2019-05-02 17:06] LABS: BUN/Creatinine Ratio 18 (6-26); Blood Urea Nitrogen 12 mg/dL (8-23); Calcium 8.4 mg/dL (8.6-10.3); Carbon Dioxide 18 mEq/L (23-29); Chloride 91 mEq/L (98-107); Glucose 101 mg/dL (70-105); Osmolality,Calculated 250 (280-300); Potassium 4.1 mEq/L (3.5-5.1); Sodium 120 mEq/L (136-145); eGFR For African Americans > 60 (> 60); eGFR For Non-African Americans > 60 (> 60)
[2019-05-02 20:51] LABS: BUN/Creatinine Ratio 19 (6-26); Blood Urea Nitrogen 12 mg/dL (8-23); Calcium 8.7 mg/dL (8.6-10.3); Carbon Dioxide 20 mEq/L (23-29); Chloride 93 mEq/L (98-107); Glucose 122 mg/dL (70-105); Osmolality,Calculated 251 (280-300); Potassium 4.2 mEq/L (3.5-5.1); Sodium 120 mEq/L (136-145); eGFR For African Americans > 60 (> 60); eGFR For Non-African Americans > 60 (> 60)
[2019-05-03 02:12] LABS: Hematocrit 32.1 % (35.3-44.9); Mean Corpuscular HGB Conc 34.6 g/dL (31.6-35.5); Mean Corpuscular Volume 89.7 fL (83.0-100.0); Mean Platelet Volume 9.7 fL (9.4-12.4); Platelet Count 256 K/mcL (140-400); Red Blood Count 3.58 M/mcL (3.82-4.97); Red Cell Distribution Width 14.3 % (11.5-14.5); White Blood Count 5.3 K/mcL (4.3-11.1)
[2019-05-03 02:13] LABS: Hemoglobin 11.1 g/dL (11.5-15.4)
[2019-05-03 02:22] LABS: BUN/Creatinine Ratio 18 (6-26); Blood Urea Nitrogen 9 mg/dL (8-23); Calcium 8.2 mg/dL (8.6-10.3); Carbon Dioxide 19 mEq/L (23-29); Chloride 97 mEq/L (98-107); Glucose 81 mg/dL (70-105); Osmolality,Calculated 258 (280-300); Sodium 125 mEq/L (136-145); eGFR For African Americans > 60 (> 60); eGFR For Non-African Americans > 60 (> 60)
[2019-05-03] MEDS: 0.9 % Sodium Chloride 1,000 ML IVC SCH (04:01)
[2019-05-03] MEDS ORDERED: 0.9 % Sodium Chloride 1,000 ML IVC SCH (04:30)
[2019-05-03] MEDS: Folic Acid 1 MG TABLET PO SCH (08:05)
[2019-05-03] MEDS: Cholecalciferol (D-3) 1,000 UNIT (25MCG) TABLET PO SCH (08:05)
[2019-05-03] MEDS: Hydrocortisone 10 MG TABLET PO SCH ×2 (08:05→16:22)
[2019-05-03] MEDS: carvediloL 6.25 MG TABLET PO SCH (08:05)
[2019-05-03] MEDS: Ketorolac 15 MG/ML VIAL IM PRN (09:53)
[2019-05-03] MEDS: Budesonide/Formoterol 80/4.5 1 PUFF INH IH SCH (11:21)
[2019-05-03] MEDS ORDERED: Ketorolac 15 MG/ML VIAL IVP PRN (11:56)
[2019-05-04 04:57] LABS: Hematocrit 33.5 % (35.3-44.9); Mean Corpuscular HGB Conc 35.8 g/dL (31.6-35.5); Mean Corpuscular Hemoglobin 31.3 pg (28.0-33.3); Mean Corpuscular Volume 87.2 fL (83.0-100.0); Platelet Count 319 K/mcL (140-400); Red Blood Count 3.84 M/mcL (3.82-4.97); Red Cell Distribution Width 14.4 % (11.5-14.5); White Blood Count 5.2 K/mcL (4.3-11.1)
[2019-05-04 05:19] LABS: BUN/Creatinine Ratio 13 (6-26); Blood Urea Nitrogen 5 mg/dL (8-23); Carbon Dioxide 23 mEq/L (23-29); Chloride 100 mEq/L (98-107); Glucose 86 mg/dL (70-105); Osmolality,Calculated 273 (280-300); Potassium 3.7 mEq/L (3.5-5.1); Sodium 133 mEq/L (136-145); eGFR For African Americans > 60 (> 60); eGFR For Non-African Americans > 60 (> 60)
[2019-05-04 06:11] LABS: Bilirubin,Urine Negative (Negative); Blood,Urine Small (Negative); Clarity,Urine Cloudy (Clear); Color,Urine Yellow (Yellow); Glucose,Urine (UA) Normal (Normal); Ketones,Urine 15 mg/dL (Negative); Leukocyte Esterase,Urine Large (Negative); Nitrite,Urine Negative (Negative); PH,Urine 6.5 pH Units (5.0-8.0); Protein,Urine Negative (Neg-Trace); Specific Gravity,Urine 1.009 (1.010-1.025); Urobilinogen,Urine Normal (Normal)
[2019-05-04 06:12] LABS: Bacteria,Urine Many per hpf (None-Few); Hyaline Casts,Urine None Seen per lpf (None-Few); Squamous Epithelial Cell,Urine Few per lpf (None-Few); WBC,Urine 50-100 per hpf (0-3)
[2019-05-04] MEDS: Budesonide/Formoterol 80/4.5 1 PUFF INH IH SCH (07:29)
[2019-05-04] MEDS ORDERED: Hydrocortisone 10 MG TABLET PO SCH ×2 (08:45→17:00)
[2019-05-04] MEDS ORDERED: cefTRIAXone 1,000 MG in Water for inj. (sterile) 10 ML IVP SCH (09:00)
[2019-05-04] MEDS: Hydrocortisone 10 MG TABLET PO SCH (09:29)
[2019-05-04] MEDS: Cholecalciferol (D-3) 1,000 UNIT (25MCG) TABLET PO SCH (09:32)
[2019-05-04] MEDS: Folic Acid 1 MG TABLET PO SCH (09:32)
[2019-05-04] MEDS: carvediloL 6.25 MG TABLET PO SCH (09:32)
[2019-05-04 11:04] VITALS: BP 111/68
[2019-05-05] MEDS ORDERED: Cefdinir 300 MG CAPSULE PO SCH (09:00)
== END 2019-05-04 15:33 | DRG 643 ==
LOC: 3BNU 13:15 → EMEROOARM 13:15 → SUATTDRO 17:11 → 3BNU 18:45
PROVIDERS: ADMIT Internal Medicine; ATTEND Family Medicine

== ENCOUNTER 2019-09-15 10:53 | Inpatient (IN) ==
[2019-09-15] MEDS ORDERED: Isovue-370 500 ML BOTTLE IVP ONE (11:09)
[2019-09-15 11:32] LABS: Basophils % 0.5 %; Eosinophils # 0.4 K/mcL (0.0-0.6); Eosinophils % 9.8 %; Hematocrit 32.1 % (35.3-44.9); Hemoglobin 10.9 g/dL (11.5-15.4); Immature Granulocytes % 0.5 % (0-4); Lymphocytes # 1.2 K/mcL (0.6-4.6); Mean Corpuscular Hemoglobin 30.8 pg (28.0-33.3); Mean Corpuscular Volume 90.7 fL (83.0-100.0); Mean Platelet Volume 9.2 fL (9.4-12.4); Monocytes # 0.4 K/mcL (0.0-1.3); Monocytes % 8.6 %; Neutrophils # 2.3 K/mcL (1.6-8.9); Platelet Count 222 K/mcL (140-400); Red Blood Count 3.54 M/mcL (3.82-4.97); Red Cell Distribution Width 13.4 % (11.5-14.5); Segmented Neutrophils % 53.6 %; White Blood Count 4.3 K/mcL (4.3-11.1)
[2019-09-15 12:06] LABS: Troponin I < 0.03 ng/mL (< 0.04)
[2019-09-15 12:07] LABS: Alanine Aminotransferase 39 Units/L (7-52); Albumin 3.2 g/dL (3.5-5.7); Albumin/Globulin Ratio 1.1 (1.1-2.2); Alkaline Phosphatase 93 Units/L (34-104); Aspartate Amino Transferase 53 Units/L (13-39); BUN/Creatinine Ratio 17 (6-26); Bilirubin,Total 0.3 mg/dL (0.3-1.0); Blood Urea Nitrogen 9 mg/dL (8-23); Calcium 8.2 mg/dL (8.6-10.3); Carbon Dioxide 22 mEq/L (23-29); Chloride 95 mEq/L (98-107); Globulin 2.8 g/dL (2.4-3.5); Glucose 83 mg/dL (70-105); Osmolality,Calculated 258 (280-300); Sodium 125 mEq/L (136-145); eGFR For African Americans > 60 (> 60); eGFR For Non-African Americans > 60 (> 60)
[2019-09-15 13:48] LABS: Bacteria,Urine Few per hpf (None-Few); Bilirubin,Urine Negative (Negative); Blood,Urine Trace (Negative); Clarity,Urine Turbid (Clear); Color,Urine Yellow (Yellow); Glucose,Urine (UA) Normal (Normal); Ketones,Urine Negative (Negative); Leukocyte Esterase,Urine Large (Negative); Nitrite,Urine Positive (Negative); Protein,Urine Negative (Neg-Trace); Specific Gravity,Urine > 1.030 (1.010-1.025); Squamous Epithelial Cell,Urine Few per hpf (None-Few); Urobilinogen,Urine Normal (Normal); WBC,Urine TNTC per hpf (0-3)
[2019-09-15] MEDS ORDERED: cefTRIAXone 2,000 MG in Water for inj. (sterile) 20 ML IVP ONE (14:02)
[2019-09-15] MEDS ORDERED: Ondansetron 4 MG/2 ML VIAL IVP PRN (14:07)
[2019-09-15] MEDS ORDERED: Naloxone 0.4 MG/ML INJ IVP PRN (14:07)
[2019-09-15] MEDS ORDERED: *HR* FentaNYL (PF) 100 MCG/2 ML VIAL IVP ONE (14:14)
[2019-09-15] MEDS: Acetaminophen 325 MG TABLET PO PRN (18:51)
[2019-09-16 01:33] LABS: Basophils % 0.8 %; Eosinophils # 0.4 K/mcL (0.0-0.6); Eosinophils % 11.3 %; Hematocrit 31.2 % (35.3-44.9); Hemoglobin 10.6 g/dL (11.5-15.4); Immature Granulocytes % 0.5 % (0-4); Lymphocytes # 1.1 K/mcL (0.6-4.6); Lymphocytes % 30.4 %; Mean Corpuscular Hemoglobin 30.6 pg (28.0-33.3); Mean Corpuscular Volume 90.2 fL (83.0-100.0); Mean Platelet Volume 9.3 fL (9.4-12.4); Monocytes # 0.3 K/mcL (0.0-1.3); Monocytes % 7.8 %; Neutrophils # 1.8 K/mcL (1.6-8.9); Platelet Count 221 K/mcL (140-400); Red Blood Count 3.46 M/mcL (3.82-4.97); Red Cell Distribution Width 13.3 % (11.5-14.5); Segmented Neutrophils % 49.2 %; White Blood Count 3.7 K/mcL (4.3-11.1)
[2019-09-16 01:52] LABS: BUN/Creatinine Ratio 14 (6-26); Blood Urea Nitrogen 6 mg/dL (8-23); Calcium 8.1 mg/dL (8.6-10.3); Carbon Dioxide 22 mEq/L (23-29); Chloride 95 mEq/L (98-107); Glucose 75 mg/dL (70-105); Magnesium 1.6 mg/dL (1.6-2.6); Osmolality,Calculated 256 (280-300); Sodium 125 mEq/L (136-145); eGFR For African Americans > 60 (> 60); eGFR For Non-African Americans > 60 (> 60)
[2019-09-16] MEDS: Acetaminophen 325 MG TABLET PO PRN (05:14)
[2019-09-16] MEDS: *HR* Heparin 5,000 UNIT/ML VIAL SQ SCH ×3 (05:43→21:55)
[2019-09-16] MEDS ORDERED: Hydrocortisone 10 MG TABLET PO SCH (08:00)
[2019-09-16] MEDS: cefTRIAXone 1,000 MG in 0.9 % Sodium Chloride Mini Bag 100 ML IVPB SCH (08:59)
[2019-09-16] MEDS: carvediloL 6.25 MG TABLET PO SCH (09:00)
[2019-09-16 11:33] LABS: Folate 19.6 ng/mL (3.0-16.0)
[2019-09-17 03:33] LABS: Basophils % 0.7 %; Eosinophils # 0.5 K/mcL (0.0-0.6); Eosinophils % 10.1 %; Hematocrit 32.5 % (35.3-44.9); Hemoglobin 11.3 g/dL (11.5-15.4); Immature Granulocytes % 0.4 % (0-4); Lymphocytes # 1.3 K/mcL (0.6-4.6); Lymphocytes % 28.4 %; Mean Corpuscular HGB Conc 34.8 g/dL (31.6-35.5); Mean Corpuscular Hemoglobin 30.9 pg (28.0-33.3); Mean Corpuscular Volume 88.8 fL (83.0-100.0); Monocytes # 0.4 K/mcL (0.0-1.3); Monocytes % 8.3 %; Neutrophils # 2.4 K/mcL (1.6-8.9); Platelet Count 223 K/mcL (140-400); Red Blood Count 3.66 M/mcL (3.82-4.97); Red Cell Distribution Width 13.2 % (11.5-14.5); Segmented Neutrophils % 52.1 %; White Blood Count 4.6 K/mcL (4.3-11.1)
[2019-09-17 03:54] LABS: BUN/Creatinine Ratio 13 (6-26); Blood Urea Nitrogen 5 mg/dL (8-23); Calcium 8.4 mg/dL (8.6-10.3); Carbon Dioxide 22 mEq/L (23-29); Chloride 93 mEq/L (98-107); Glucose 86 mg/dL (70-105); Magnesium 1.6 mg/dL (1.6-2.6); Osmolality,Calculated 253 (280-300); Sodium 123 mEq/L (136-145); eGFR For African Americans > 60 (> 60); eGFR For Non-African Americans > 60 (> 60)
[2019-09-17] MEDS: Acetaminophen 325 MG TABLET PO PRN ×2 (04:23→13:18)
[2019-09-17] MEDS: *HR* Heparin 5,000 UNIT/ML VIAL SQ SCH ×3 (05:58→20:58)
[2019-09-17] MEDS ORDERED: Hydrocortisone 10 MG TABLET PO SCH ×2 (09:00)
[2019-09-17] MEDS: cefTRIAXone 1,000 MG in 0.9 % Sodium Chloride Mini Bag 100 ML IVPB SCH (09:10)
[2019-09-17] MEDS: Cholecalciferol (D-3) 1,000 UNIT (25MCG) TABLET PO SCH (09:11)
[2019-09-17] MEDS: carvediloL 6.25 MG TABLET PO SCH (09:12)
[2019-09-17] MEDS: Budesonide/Formoterol 80/4.5 1 PUFF INH IH SCH ×2 (10:14→19:51)
[2019-09-17 12:51] LABS: BUN/Creatinine Ratio 15 (6-26); Blood Urea Nitrogen 6 mg/dL (8-23); Calcium 8.2 mg/dL (8.6-10.3); Carbon Dioxide 23 mEq/L (23-29); Chloride 90 mEq/L (98-107); Glucose 95 mg/dL (70-105); Osmolality,Calculated 247 (280-300); Potassium 3.9 mEq/L (3.5-5.1); Sodium 120 mEq/L (136-145); eGFR For African Americans > 60 (> 60); eGFR For Non-African Americans > 60 (> 60)
[2019-09-17] MEDS: cephALEXin 250 MG CAPSULE PO SCH ×3 (13:17→20:58)
[2019-09-17 16:31] LABS: BUN/Creatinine Ratio 16 (6-26); Blood Urea Nitrogen 7 mg/dL (8-23); Calcium 8.4 mg/dL (8.6-10.3); Carbon Dioxide 24 mEq/L (23-29); Chloride 92 mEq/L (98-107); Glucose 117 mg/dL (70-105); Osmolality,Calculated 251 (280-300); Potassium 4.4 mEq/L (3.5-5.1); Sodium 121 mEq/L (136-145); eGFR For African Americans > 60 (> 60); eGFR For Non-African Americans > 60 (> 60)
[2019-09-17 21:01] LABS: BUN/Creatinine Ratio 16 (6-26); Blood Urea Nitrogen 7 mg/dL (8-23); Calcium 8.6 mg/dL (8.6-10.3); Carbon Dioxide 23 mEq/L (23-29); Chloride 91 mEq/L (98-107); Glucose 122 mg/dL (70-105); Osmolality,Calculated 251 (280-300); Potassium 4.4 mEq/L (3.5-5.1); Sodium 121 mEq/L (136-145); eGFR For African Americans > 60 (> 60); eGFR For Non-African Americans > 60 (> 60)
[2019-09-18 00:56] LABS: Basophils % 0.6 %; Eosinophils # 0.2 K/mcL (0.0-0.6); Eosinophils % 3.5 %; Hematocrit 34.6 % (35.3-44.9); Hemoglobin 11.7 g/dL (11.5-15.4); Immature Granulocytes % 0.6 % (0-4); Lymphocytes # 0.9 K/mcL (0.6-4.6); Lymphocytes % 18.9 %; Mean Corpuscular HGB Conc 33.8 g/dL (31.6-35.5); Mean Corpuscular Hemoglobin 29.8 pg (28.0-33.3); Mean Corpuscular Volume 88.3 fL (83.0-100.0); Mean Platelet Volume 9.1 fL (9.4-12.4); Monocytes # 0.4 K/mcL (0.0-1.3); Monocytes % 7.3 %; Neutrophils # 3.4 K/mcL (1.6-8.9); Platelet Count 241 K/mcL (140-400); Red Blood Count 3.92 M/mcL (3.82-4.97); Red Cell Distribution Width 13.3 % (11.5-14.5); Segmented Neutrophils % 69.1 %; White Blood Count 4.9 K/mcL (4.3-11.1)
[2019-09-18 01:10] LABS: BUN/Creatinine Ratio 19 (6-26); Blood Urea Nitrogen 7 mg/dL (8-23); Calcium 8.5 mg/dL (8.6-10.3); Carbon Dioxide 22 mEq/L (23-29); Chloride 92 mEq/L (98-107); Glucose 102 mg/dL (70-105); Osmolality,Calculated 250 (280-300); Potassium 4.6 mEq/L (3.5-5.1); Sodium 121 mEq/L (136-145); eGFR For African Americans > 60 (> 60); eGFR For Non-African Americans > 60 (> 60)
[2019-09-18 01:12] LABS: BUN/Creatinine Ratio 18 (6-26); Blood Urea Nitrogen 7 mg/dL (8-23); Calcium 8.6 mg/dL (8.6-10.3); Carbon Dioxide 22 mEq/L (23-29); Chloride 92 mEq/L (98-107); Glucose 102 mg/dL (70-105); Osmolality,Calculated 248 (280-300); Potassium 4.6 mEq/L (3.5-5.1); Sodium 120 mEq/L (136-145); eGFR For African Americans > 60 (> 60); eGFR For Non-African Americans > 60 (> 60)
[2019-09-18] MEDS: *HR* Heparin 5,000 UNIT/ML VIAL SQ SCH ×3 (05:16→21:01)
[2019-09-18] MEDS: Budesonide/Formoterol 80/4.5 1 PUFF INH IH SCH ×2 (07:57→20:14)
[2019-09-18] MEDS: Hydrocortisone 10 MG TABLET PO SCH ×2 (08:58→11:08)
[2019-09-18] MEDS: Acetaminophen 325 MG TABLET PO PRN (08:59)
[2019-09-18] MEDS: cephALEXin 250 MG CAPSULE PO SCH ×4 (08:59→21:00)
[2019-09-18] MEDS: carvediloL 6.25 MG TABLET PO SCH (08:59)
[2019-09-18] MEDS: Cholecalciferol (D-3) 1,000 UNIT (25MCG) TABLET PO SCH (08:59)
[2019-09-18 09:28] LABS: BUN/Creatinine Ratio 13 (6-26); Blood Urea Nitrogen 6 mg/dL (8-23); Calcium 8.9 mg/dL (8.6-10.3); Carbon Dioxide 23 mEq/L (23-29); Chloride 93 mEq/L (98-107); Glucose 87 mg/dL (70-105); Osmolality,Calculated 259 (280-300); Potassium 4.2 mEq/L (3.5-5.1); Sodium 126 mEq/L (136-145); eGFR For African Americans > 60 (> 60); eGFR For Non-African Americans > 60 (> 60)
[2019-09-18] MEDS ORDERED: Tolvaptan 15 MG TABLET PO ONE (17:24)
[2019-09-18 19:08] LABS: BUN/Creatinine Ratio 13 (6-26); Blood Urea Nitrogen 7 mg/dL (8-23); Calcium 8.6 mg/dL (8.6-10.3); Carbon Dioxide 23 mEq/L (23-29); Chloride 96 mEq/L (98-107); Glucose 139 mg/dL (70-105); Osmolality,Calculated 262 (280-300); Potassium 4.2 mEq/L (3.5-5.1); Sodium 126 mEq/L (136-145); eGFR For African Americans > 60 (> 60); eGFR For Non-African Americans > 60 (> 60)
[2019-09-18 23:06] LABS: BUN/Creatinine Ratio 14 (6-26); Blood Urea Nitrogen 8 mg/dL (8-23); Calcium 8.9 mg/dL (8.6-10.3); Carbon Dioxide 25 mEq/L (23-29); Chloride 99 mEq/L (98-107); Glucose 109 mg/dL (70-105); Osmolality,Calculated 273 (280-300); Potassium 4.2 mEq/L (3.5-5.1); Sodium 132 mEq/L (136-145); eGFR For African Americans > 60 (> 60); eGFR For Non-African Americans > 60 (> 60)
[2019-09-19] MEDS: *HR* Heparin 5,000 UNIT/ML VIAL SQ SCH (06:29)
[2019-09-19] MEDS: Acetaminophen 325 MG TABLET PO PRN (06:34)
[2019-09-19] MEDS: Budesonide/Formoterol 80/4.5 1 PUFF INH IH SCH (07:27)
[2019-09-19] MEDS: Hydrocortisone 10 MG TABLET PO SCH ×2 (08:51→12:22)
[2019-09-19] MEDS: carvediloL 6.25 MG TABLET PO SCH (08:52)
[2019-09-19] MEDS: Cholecalciferol (D-3) 1,000 UNIT (25MCG) TABLET PO SCH (08:52)
[2019-09-19] MEDS: cephALEXin 250 MG CAPSULE PO SCH ×2 (08:53→12:23)
[2019-09-19 10:39] VITALS: BP 108/73
== END 2019-09-19 12:25 | disposition home or self-care (01) | DRG 690 ==
LOC: EMEROOARM 10:53 → 3ANU 10:53 → SUATTDRO 14:10 → 3ANU 14:57
PROVIDERS: ADMIT Pharmacist; ATTEND Internal Medicine

== ENCOUNTER 2020-04-10 12:16 | Observation (INO) ==
[2020-04-10 13:19] LABS: Basophils % 0.7 %; Eosinophils # 0.2 K/mcL (0.0-0.6); Eosinophils % 4.1 %; Hematocrit 40.5 % (35.3-44.9); Hemoglobin 12.5 g/dL (11.5-15.4); Immature Granulocytes % 0.5 % (0-4); Lymphocytes # 0.7 K/mcL (0.6-4.6); Mean Corpuscular HGB Conc 30.9 g/dL (31.6-35.5); Mean Corpuscular Volume 97.4 fL (83.0-100.0); Mean Platelet Volume 9.6 fL (9.4-12.4); Monocytes # 0.7 K/mcL (0.0-1.3); Neutrophils # 3.9 K/mcL (1.6-8.9); Platelet Count 145 K/mcL (140-400); Red Blood Count 4.16 M/mcL (3.82-4.97); Red Cell Distribution Width 14.5 % (11.5-14.5); Segmented Neutrophils % 70.7 %; White Blood Count 5.6 K/mcL (4.3-11.1)
[2020-04-10 13:23] LABS: INR 1.1; Prothrombin Time 13.2 Seconds (9.4-12.1)
[2020-04-10 13:25] LABS: Activated Partial Thrombo Time 28.7 Seconds (26.0-36.0)
[2020-04-10 13:57] LABS: Alanine Aminotransferase 13 Units/L (7-52); Albumin 3.7 g/dL (3.5-5.7); Albumin/Globulin Ratio 1.5 (1.1-2.2); Alkaline Phosphatase 67 Units/L (34-104); Aspartate Amino Transferase 22 Units/L (13-39); BUN/Creatinine Ratio 18 (6-26); Bilirubin,Direct 0.1 mg/dL (0.0-0.2); Bilirubin,Indirect 0.4 mg/dL (0.0-1.0); Bilirubin,Total 0.5 mg/dL (0.3-1.0); Blood Urea Nitrogen 13 mg/dL (8-23); C-Reactive Protein 32 mg/L (Less than 10); Calcium 8.2 mg/dL (8.6-10.3); Carbon Dioxide 23 mEq/L (23-29); Chloride 103 mEq/L (98-107); Ferritin 127 ng/mL (10-120); Globulin 2.5 g/dL (2.4-3.5); Glucose 84 mg/dL (70-105); Lactate Dehydrogenase 166 Units/L (140-271); Magnesium 1.8 mg/dL (1.6-2.6); Osmolality,Calculated 281 (280-300); Phosphorous 2.6 mg/dL (2.7-4.5); Potassium 3.6 mEq/L (3.5-5.1); Sodium 136 mEq/L (136-145); Total Protein 6.2 g/dL (6.4-8.9); Troponin I < 0.03 ng/mL (< 0.04); eGFR For African Americans > 60 (> 60); eGFR For Non-African Americans > 60 (> 60)
[2020-04-10 17:25] LABS: Bilirubin,Urine Negative (Negative); Blood,Urine Small (Negative); Clarity,Urine Clear (Clear); Color,Urine Colorless (Yellow); Glucose,Urine (UA) Normal (Normal); Ketones,Urine Negative (Negative); Leukocyte Esterase,Urine Negative (Negative); Nitrite,Urine Negative (Negative); PH,Urine 6.5 pH Units (5.0-8.0); Protein,Urine Negative (Neg-Trace); RBC,Urine 0-3 per hpf (0-3); Specific Gravity,Urine 1.006 (1.010-1.025); Urobilinogen,Urine Normal (Normal); WBC,Urine 0-3 per hpf (0-3)
[2020-04-10] MEDS ORDERED: Ondansetron 4 MG/2 ML VIAL IVP PRN (18:04)
[2020-04-10] MEDS ORDERED: Benzonatate 100 MG CAPSULE PO PRN (19:15)
[2020-04-10] MEDS ORDERED: Melatonin 3 MG TABLET PO PRN (19:25)
[2020-04-10] MEDS: Calcium Gluconate 1gm/50mL 1 GM/50 ML BAG IVPB SCH ×2 (19:58→22:58)
[2020-04-10] MEDS ORDERED: QUEtiapine Fumarate 25 MG TABLET PO SCH (21:00)
[2020-04-10 22:47] LABS: Folate > 22.3 ng/mL (3.0-16.0); Vitamin B12 515 pg/mL (250-1100)
[2020-04-10] MEDS: Ipratropium 1 PUFF INHALER IH SCH (22:52)
[2020-04-10] MEDS: Budesonide/Formoterol 80/4.5 1 PUFF INH IH SCH (22:53)
[2020-04-11] MEDS: Ipratropium 1 PUFF INHALER IH SCH ×5 (03:25→20:08)
[2020-04-11] MEDS: Acetaminophen 325 MG TABLET PO PRN ×2 (04:37→16:21)
[2020-04-11] MEDS ORDERED: *HR* Enoxaparin 40 MG/0.4 ML SYRINGE SQ SCH (06:00)
[2020-04-11 06:03] LABS: Basophils % 0.8 %; Eosinophils # 0.2 K/mcL (0.0-0.6); Eosinophils % 5.6 %; Hematocrit 39.3 % (35.3-44.9); Hemoglobin 13.1 g/dL (11.5-15.4); Immature Granulocytes % 0.3 % (0-4); Lymphocytes # 1.1 K/mcL (0.6-4.6); Lymphocytes % 28.6 %; Mean Corpuscular HGB Conc 33.3 g/dL (31.6-35.5); Mean Corpuscular Hemoglobin 31.3 pg (28.0-33.3); Mean Platelet Volume 9.7 fL (9.4-12.4); Monocytes # 0.7 K/mcL (0.0-1.3); Monocytes % 16.7 %; Neutrophils # 1.9 K/mcL (1.6-8.9); Platelet Count 149 K/mcL (140-400); Red Blood Count 4.18 M/mcL (3.82-4.97); Red Cell Distribution Width 14.4 % (11.5-14.5)
[2020-04-11 06:23] LABS: Lactate Dehydrogenase 150 Units/L (140-271)
[2020-04-11 06:39] LABS: Ferritin 150 ng/mL (10-120)
[2020-04-11 06:42] LABS: Alanine Aminotransferase 13 Units/L (7-52); Albumin 3.5 g/dL (3.5-5.7); Albumin/Globulin Ratio 1.3 (1.1-2.2); Alkaline Phosphatase 67 Units/L (34-104); Aspartate Amino Transferase 20 Units/L (13-39); BUN/Creatinine Ratio 21 (6-26); Bilirubin,Total 0.5 mg/dL (0.3-1.0); Blood Urea Nitrogen 15 mg/dL (8-23); Calcium 8.8 mg/dL (8.6-10.3); Carbon Dioxide 24 mEq/L (23-29); Chloride 103 mEq/L (98-107); Globulin 2.6 g/dL (2.4-3.5); Glucose 81 mg/dL (70-105); Magnesium 2.3 mg/dL (1.6-2.6); Osmolality,Calculated 282 (280-300); Phosphorous 3.9 mg/dL (2.7-4.5); Potassium 3.8 mEq/L (3.5-5.1); Sodium 136 mEq/L (136-145); Total Protein 6.1 g/dL (6.4-8.9); eGFR For African Americans > 60 (> 60); eGFR For Non-African Americans > 60 (> 60)
[2020-04-11 08:51] LABS: C-Reactive Protein 35 mg/L (Less than 10)
[2020-04-11] MEDS ORDERED: carvediloL 6.25 MG TABLET PO SCH (09:00)
[2020-04-11] MEDS ORDERED: Hydrocortisone 10 MG TABLET PO SCH ×2 (09:00)
[2020-04-11] MEDS ORDERED: Folic Acid 1 MG TABLET PO SCH (09:00)
[2020-04-11] MEDS ORDERED: Furosemide 20 MG/2 ML VIAL IVP SCH (09:00)
[2020-04-11] MEDS: Budesonide/Formoterol 80/4.5 1 PUFF INH IH SCH ×3 (11:46→20:08)
[2020-04-11] MEDS ORDERED: Methotrexate PFS 25 MG/ML VIAL SQ SCH (14:45)
[2020-04-11 17:40] VITALS: BP 162/101
[2020-04-11] MEDS ORDERED: Ibuprofen 200 MG TABLET PO SCH (21:00)
[2020-04-12] MEDS ORDERED: Cholecalciferol (D-3) 1,000 UNIT (25MCG) TABLET PO SCH (09:00)
[2020-04-12] MEDS ORDERED: Multivit/Ca/Min/Fe/FA 1 TAB TABLET PO SCH (09:00)
== END 2020-04-11 19:40 ==
LOC: EMEROOARM 12:16 → 2NENU 12:16 → SUATTDRO 18:15 → 2NENU 18:45
PROVIDERS: ADMIT Internal Medicine; ATTEND Internal Medicine